=== PATIENT | female | born 1950 | race Caucasian/White ===

== ENCOUNTER 2019-12-19 10:20 | Outpatient (CLI) | payer OTHER, SELFPAY ==
[2019-12-19 10:34] LABS: Basophils Absolute Auto 0.1 K/mm3 (0.0-0.1); Basophils Percent Auto 0.7 % (0.2-1.2); Eosinophils Absolute Auto 0.2 K/mm3 (0-0.3); Hematocrit 42.2 % (37.0-47.0); Hemoglobin 13.5 g/dL (12.0-15.0); Immature Granulocyte Absolute 0.04 K/mm3 (0.00-0.031); Immature Granulocyte Percent A 0.4 % (0-0.5); Lymphocytes Absolute Auto 2.69 K/mm3 (0.9-3.2); Lymphocytes Percent Auto 29.9 % (18.3-44.2); Mean Corpuscular Hemoglobin 28.2 pg (26-34); Mean Corpuscular Volume 88.3 fl (80-100); Mean Platelet Volume 10.2 fl (7.4-10.4); Monocytes Absolute Auto 0.7 K/mm3 (0.1-0.6); Monocytes Percent Auto 7.9 % (2.6-8.5); Neutrophils Absolute Auto 5.3 K/mm3 (1.3-6.7); Neutrophils Percent Auto 59.1 % (45.5-73.1); Platelet Count Result 300 k/mm3 (150-375); Red Blood Count 4.78 M/mm3 (4.2-5.4); Red Cell Distribution Width 13.8 % (11.5-14.5)
[2019-12-19 10:37] LABS: Blood Urea Nitrogen 11 mg/dL (8-26); Carbon Dioxide 26 mmol/L (22-30); Chloride 105 mmol/L (98-109); Estimated Glomerular Filt Rate 55; Glucose 201 mg/dL (70-105); Potassium 3.7 mmol/L (3.5-4.9); Sodium 142 mmol/L (138-146)
[2019-12-23 04:46] LABS: CA 27.29 24 U/mL (<38)
== END 2019-12-19 10:21 | disposition home or self-care (01) ==
LOC: ANHLAB 10:22
PROVIDERS: PCP Family Medicine Adolescent Medicine; Visit Provider Internal Medicine Hematology & Oncology
DX: C50.411 Malignant neoplasm of upper-outer quadrant of right female breast (principal); Z17.0 Estrogen receptor positive status [ER+]
CPT/HCPCS: 36415; 80048; 85025; 86300

== ENCOUNTER 2020-03-01 10:51 | Outpatient (CLI) | payer OTHER, SELFPAY ==
--- NOTE | ~2020-03-01 | MM_ITS ---
EXAMINATION: MM diagnostic marilee RT w natali HISTORY: History of right breast cancer TECHNIQUE: Craniocaudal, mediolateral, and mediolateral oblique 3-D tomosynthesis images of the right breast were performed and synthetic 2-D images were generated. CAD analysis was submitted and interp reted. COMPARISON: 09/08/2019,06/20/2018,07/04/2018 BREAST PARENCHYMAL COMPOSITION: There are scattered areas of fibroglandular density. FINDINGS: Lumpectomy changes are again seen in the posterior third of the upper outer quadrant of the right breast which have slightly decreased in density since the most recent comparison. Right breast skin thickening is consistent with radiation treatment. There is no suspicious mass, calcification, or architectural distortion in the breast to suggest malignancy. IMPRESSION: 1. Expected treatment changes in the right breast without mammographic evidence of malignancy. 2. Routine imaging follow-up and screening are recommended. BI-RADS Category 2: Benign finding(s). Reviewed, dictated and finalized at location A.
== END 2020-03-01 10:52 | disposition home or self-care (01) ==
PROVIDERS: PCP Family Medicine Adolescent Medicine; Visit Provider Internal Medicine Hematology & Oncology
DX: C50.411 Malignant neoplasm of upper-outer quadrant of right female breast (principal); Z17.0 Estrogen receptor positive status [ER+]
CPT/HCPCS: 77061; 77065; G0279

== ENCOUNTER 2020-03-01 11:42 | Outpatient (CLI) | payer OTHER, SELFPAY ==
[2020-03-01 12:10] LABS: Basophils Absolute Auto 0.1 K/mm3 (0.0-0.1); Basophils Percent Auto 0.5 % (0.2-1.2); Eosinophils Absolute Auto 0.2 K/mm3 (0-0.3); Hematocrit 38.4 % (37.0-47.0); Hemoglobin 12.2 g/dL (12.0-15.0); Immature Granulocyte Absolute 0.06 K/mm3 (0.00-0.031); Immature Granulocyte Percent A 0.6 % (0-0.5); Lymphocytes Absolute Auto 3.33 K/mm3 (0.9-3.2); Lymphocytes Percent Auto 34.1 % (18.3-44.2); Mean Corpuscular HGB Conc 31.8 g/dl (32-36); Mean Corpuscular Volume 88.1 fl (80-100); Mean Platelet Volume 10.2 fl (7.4-10.4); Monocytes Absolute Auto 0.9 K/mm3 (0.1-0.6); Monocytes Percent Auto 9.2 % (2.6-8.5); Neutrophils Absolute Auto 5.2 K/mm3 (1.3-6.7); Neutrophils Percent Auto 53.6 % (45.5-73.1); Platelet Count Result 260 k/mm3 (150-375); Red Blood Count 4.36 M/mm3 (4.2-5.4); Red Cell Distribution Width 14.4 % (11.5-14.5); White Blood Count 9.8 K/mm3 (4.5-10.0)
[2020-03-01 13:36] LABS: Alanine Aminotransferase 14 U/L (4-35); Albumin Level 3.7 g/dL (3.5-5.1); Alkaline Phosphatase 81 U/L (38-126); Aspartate Amino Transferase 20 U/L (14-36); Bilirubin,Total 0.9 mg/dL (0.2-1.3); Blood Urea Nitrogen 13 mg/dL (7-17); Calcium 9.1 mg/dL (8.4-10.2); Carbon Dioxide 27 mmol/L (22-30); Chloride 105 mmol/L (98-107); Estimated Glomerular Filt Rate > 60; Glucose 91 mg/dL (65-105); Potassium 4.1 mmol/L (3.4-5.0); Sodium 140 mmol/L (137-145)
[2020-03-01 13:41] LABS: Cholesterol 151 mg/dL (0-200); HDL Direct 39 mg/dL; Triglycerides 174 mg/dL (<150)
[2020-03-01 13:52] LABS: LDL Cholesterol Direct 85 mg/dL
[2020-03-01 16:32] LABS: Hemoglobin A1C 7.1 % (<5.7)
[2020-03-05 21:01] LABS: CA 27.29 20 U/mL (<38)
== END 2020-03-01 11:43 | disposition home or self-care (01) ==
PROVIDERS: Internal Medicine Cardiovascular Disease; PCP Family Medicine Adolescent Medicine; Visit Provider Internal Medicine Hematology & Oncology
DX: E11.65 Type 2 diabetes mellitus with hyperglycemia (principal); E78.5 Hyperlipidemia, unspecified
CPT/HCPCS: 36415; 77061; 77065; 80053; 80061; 83036; 85025; 86300; G0279

== ENCOUNTER 2020-03-22 17:56 | Outpatient (CLI) | payer OTHER, SELFPAY ==
--- NOTE | ~2020-03-22 | XR_ITS ---
EXAMINATION: XR abdomen obstructive series EXAM DATE: 03/22/2020 18:23 INDICATION: Constipation for 2 weeks, bloating. TECHNIQUE: Frontal upright projection of the upper abdomen, frontal projection of the lower abdomen f or interpretation. There is no prior study for comparison. FINDINGS: There is large amount of colonic stool and gas. No small bowel dilation, nonobstructive b owel gas pattern. There are no suspicious calcifications identified. There is no organomegaly dago pected. There are mild bony degenerative changes. There are cholecystectomy clips. IMPRESSION: Stool-filled colon. Consider constipation. Reviewed, dictated and finalized at location A.
--- NOTE | ~2020-03-22 | XR_ITS ---
EXAMINATION: XR chest 2V EXAM DATE: 03/22/2020 18:24 INDICATION: High blood pressure. Breast cancer. Quadruple bypass. TECHNIQUE: Frontal and lateral projections of the chest obtained and reviewed. Comparison is made to prior examination from 08/06/2019. FINDINGS: Sternotomy wires are present without findings to suggest sternal dehiscence. The lungs are clear. There are no pleural effusions. Heart is upper limits of normal in size. There is no pneum othorax suspected. Patient has diffuse idiopathic skeletal hyperostosis (DISH). IMPRESSION: No acute cardiopulmonary findings. Reviewed, dictated and finalized at location A.
== END 2020-03-22 17:57 | disposition home or self-care (01) ==
LOC: ANHIMG 18:01
PROVIDERS: PCP Family Medicine Adolescent Medicine; Visit Provider Internal Medicine Hematology & Oncology
DX: K59.00 Constipation, unspecified (principal)
CPT/HCPCS: 71046; 74019

== ENCOUNTER → 2020-04-03 15:40 | Outpatient (CLI) | payer OTHER, SELFPAY ==
--- NOTE | ~2020-04-03 | XR_ITS ---
EXAMINATION: XR lumbar spine 2-3V DATE: 04/03/2020 16:42 INDICATION: Back pain TECHNIQUE: Anteroposterior and lateral views of the lumbar spine, and cone-down lateral view of the l umbosacral junction were obtained. COMPARISON: CT dated 03/08/2016 FINDINGS: Alignment is normal. Unchanged chronic T11 compression fracture with mild anterior wedging. Lumbar ve rtebral body heights are normal. Moderate disc height loss with vacuum phenomena at L5-S1. Moderate l ower lumbar facet osteoarthritis. Cholecystectomy clips in the right upper quadrant and likely droppe d clip in the right mid abdomen. Approximately 2 cm rim calcified lesion in the right abdomen. Large amount of stool scattered throughout the colon which could be seen with constipation. Atherosclerotic calcification along the abdominal aorta. IMPRESSION: 1. Chronic mild T11 compression fracture. 2. Moderate lower lumbar spondylosis. 3. 2 cm rim calcified lesion in the right abdomen. Differential would include dropped gallstone post prior cholecystectomy, heterotopic ossification, peripherally calcified diverticulum, peripherally ca lcified renal cyst or renal artery aneurysm. Reviewed, dictated and finalized at location A. IMPRESSION: 1. Chronic mild T11 compression fracture. 2. Moderate lower lumbar spondylosis. 3. 2 cm rim calcified lesion in the right abdomen. Differential would include d ropped gallstone post prior cholecystectomy, heterotopic ossification, peripher ally calcified diverticulum, peripherally calcified renal cyst or renal artery aneurysm.
--- NOTE | ~2020-04-03 | XR_ITS ---
EXAMINATION: XR_[id number]_CR DATE: 04/03/2020 16:42 INDICATION: Left rib and back pain TECHNIQUE: PA view of the chest and 3 views of the left ribs were obtained. COMPARISON: Chest radiograph dated 03/22/2020 FINDINGS: No rib fractures identified. Mild calcified nodules in the right lower lobe consistent with old granu lomatous disease. No other airspace opacities, pulmonary edema, pleural effusion or pneumothorax. Car diomediastinal silhouette is normal. Median sternotomy wires and mediastinal surgical clips are seen, likely from prior coronary artery bypass grafting. Postoperative changes at the right breast and bio psy marker at the left breast. IMPRESSION: 1. No rib fracture or acute cardiopulmonary disease. Reviewed, dictated and finalized at location A.
== END ==
PROVIDERS: PCP Physician Assistant; Visit Provider Physician Assistant
DX: M54.5 Low back pain (principal); M48.54XA Collapsed vertebra, not elsewhere classified, thoracic region, initial encounter for fracture; M47.816 Spondylosis without myelopathy or radiculopathy, lumbar region
CPT/HCPCS: 71101; 72100

== ENCOUNTER → 2020-07-01 07:33 | Outpatient (CLI) | payer OTHER, SELFPAY ==
--- NOTE | ~2020-07-01 | MM_ITS ---
EXAMINATION: MM diagnostic marilee BI w natali HISTORY: Right breast cancer TECHNIQUE: Craniocaudal, mediolateral, and mediolateral oblique 3-D tomosynthesis images of the breas ts were performed and synthetic 2-D images were generated. CAD analysis was submitted and interpreted . COMPARISON: 03/01/2020, 09/08/2019, 06/20/2018 BREAST PARENCHYMAL COMPOSITION: There are scattered areas of fibroglandular density. FINDINGS: There are lumpectomy and radiation changes in the right breast. There is no evidence of dago picious mass, calcification, or architectural distortion in either breast to suggest malignancy. The re has been no suspicious interval change. IMPRESSION: 1. No mammographic evidence of malignancy. 2. Recommend routine screening mammography in one year. BI-RADS Category 2: Benign finding(s). Reviewed, dictated and finalized at location A. E REGISTRY RN
== END ==
PROVIDERS: PCP Family Medicine Adolescent Medicine; Visit Provider Internal Medicine Hematology & Oncology
DX: C50.411 Malignant neoplasm of upper-outer quadrant of right female breast (principal); Z17.0 Estrogen receptor positive status [ER+]
CPT/HCPCS: 77062; 77066; G0279

== ENCOUNTER 2020-10-31 15:46 | Outpatient (CLI) | payer OTHER, SELFPAY ==
--- NOTE | ~2020-10-31 | CT_ITS ---
EXAMINATION: CT abdomen pelvis w con DATE: 10/31/2020 16:21 INDICATION: Constipation. Weight loss. Abdominal pain. TECHNIQUE: Computed tomography (CT) of the abdomen and pelvis was performed with 100 mL Omnipaque 350 intravenous contrast. Automated exposure control and iterative reconstruction technique were employe d. The dose-length product was 1040.99 mGy-cm. COMPARISON: Chest CT 04/15/2016 FINDINGS: The visualized portions of the lung bases demonstrate mild atelectasis. A calcified right l bharathi nodule is consistent with old granulomatous disease. No pleural effusion. There is left atrial en largement of the heart. There are coronary artery calcifications. No pericardial effusion. There is s kin thickening in right breast, consistent with changes of radiation therapy. Calcifications in the l iver and spleen are consistent with old granulomatous disease. There are changes of cholecystectomy. The pancreas and adrenal glands are normal. There is cortical thinning of the kidneys. There is a 5 m m cyst in left kidney. Stool distends the rectum, which demonstrates mild wall thickening, consistent with stercoral colitis. There is a large volume of stool in the colon. The appendix is normal. There are no pathologically enlarged lymph nodes. There is no free intraperitoneal fluid. There is severe lower lumbar spondylosis. There is moderate thoracic spondylosis. There is mild chronic anterior wedg ing of multiple lower thoracic vertebral bodies. IMPRESSION: 1. Stercoral colitis. Reviewed, dictated and finalized at location A. IMPRESSION: 1. Stercoral colitis.
[2020-10-31 16:15] LABS: Estimated Glomerular Filt Rate 49
== END 2020-10-31 15:47 | disposition home or self-care (01) ==
PROVIDERS: PCP Family Medicine Adolescent Medicine; Visit Provider Internal Medicine Gastroenterology
DX: K59.00 Constipation, unspecified (principal); R63.4 Abnormal weight loss; R10.9 Unspecified abdominal pain; K52.89 Other specified noninfective gastroenteritis and colitis
CPT/HCPCS: 74177; Q9967

== ENCOUNTER → 2021-07-03 07:01 | Outpatient (CLI) | payer OTHER, SELFPAY ==
--- NOTE | ~2021-07-03 | MM_ITS ---
EXAMINATION: MM screening marilee BI w natali HISTORY: Screening mammogram TECHNIQUE: Craniocaudal and mediolateral oblique 3-D tomosynthesis images were obtained and synthetic 2-D images were generated. CAD analysis was submitted and interpreted. COMPARISON: 07/01/2020 diagnostic bilateral mammogram 03/01/2020 right diagnostic mammogram 09/04/2019 diagnostic bilateral mammogram BREAST PARENCHYMAL COMPOSITION: The breasts are heterogeneously dense, which may obscure small masses . FINDINGS: Stable postoperative change of the right breast and persistent skin thickening. There are b iopsy markers on the right. There is asymmetric increased density of the right breast compared to the left, stable since 07/01/2020 09/04/2019 PA and. Biopsy marker on the left. History of prior benign left breast biopsy. There is no evidence of interval suspicious mass, calcification, or architectural distortion to sugge st malignancy in either breast. There has been no suspicious interval change. IMPRESSION: 1. Status post right partial mastectomy and radiation breast cancer. No mammographic evidence of moreno gnancy no significant change since 07/01/2020 09/04/2019. 2. Recommend routine screening mammography in one year. BI-RADS Category 2: Benign finding(s). Reviewed, dictated and finalized at location A. HIATRIC AIDE IMPRESSION: 1. Status post right partial mastectomy and radiation breast cancer. No mammogr aphic evidence of malignancy no significant change since 07/01/2020 09/04/2019. 2. Recommend routine screening mammography in one year. BI-RADS Category 2: Benign finding(s).
== END ==
PROVIDERS: PCP Family Medicine Adolescent Medicine; Visit Provider Internal Medicine Hematology & Oncology
DX: Z12.31 Encounter for screening mammogram for malignant neoplasm of breast (principal)
CPT/HCPCS: 77063; 77067

== ENCOUNTER 2021-07-03 08:28 | Outpatient (CLI) | payer OTHER, SELFPAY ==
[2021-07-03 08:46] LABS: Basophils Percent Auto 0.5 % (0.2-1.2); Eosinophils Absolute Auto 0.3 K/mm3 (0-0.3); Eosinophils Percent Auto 2.9 % (0-4.4); Hematocrit 38.3 % (37.0-47.0); Hemoglobin 12.1 g/dL (12.0-15.0); Immature Granulocyte Absolute 0.02 K/mm3 (0.00-0.031); Immature Granulocyte Percent A 0.2 % (0-0.5); Lymphocytes Absolute Auto 2.25 K/mm3 (0.9-3.2); Lymphocytes Percent Auto 26.3 % (18.3-44.2); Mean Corpuscular HGB Conc 31.6 g/dl (32-36); Mean Corpuscular Hemoglobin 27.2 pg (26-34); Mean Corpuscular Volume 86.1 fl (80-100); Mean Platelet Volume 9.7 fl (7.4-10.4); Monocytes Absolute Auto 0.7 K/mm3 (0.1-0.6); Neutrophils Absolute Auto 5.3 K/mm3 (1.3-6.7); Neutrophils Percent Auto 62.1 % (45.5-73.1); Platelet Count Result 251 k/mm3 (150-375); Red Blood Count 4.45 M/mm3 (4.2-5.4); Red Cell Distribution Width 13.4 % (11.5-14.5); White Blood Count 8.6 K/mm3 (4.5-10.0)
[2021-07-03 09:45] LABS: Alanine Aminotransferase 17 U/L (4-35); Albumin Level 3.8 g/dL (3.5-5.1); Alkaline Phosphatase 67 U/L (38-126); Anion Gap 5 mmol/L (8-16); Aspartate Amino Transferase 36 U/L (14-36); Blood Urea Nitrogen 12 mg/dL (7-17); Calcium 9.5 mg/dL (8.4-10.2); Carbon Dioxide 30 mmol/L (22-30); Chloride 101 mmol/L (98-107); Estimated Glomerular Filt Rate > 60; Glucose 178 mg/dL (65-110); Potassium 4.4 mmol/L (3.4-5.0); Sodium 136 mmol/L (137-145)
[2021-07-09 07:05] LABS: CA 15-3 13 U/mL (<32)
== END 2021-07-03 08:29 | disposition home or self-care (01) ==
LOC: ANHLAB 08:30
PROVIDERS: PCP Family Medicine Adolescent Medicine; Visit Provider Internal Medicine Hematology & Oncology
DX: C50.411 Malignant neoplasm of upper-outer quadrant of right female breast (principal); Z17.0 Estrogen receptor positive status [ER+]
CPT/HCPCS: 36415; 80053; 85025; 86300

== ENCOUNTER → 2022-07-07 07:33 | Outpatient (CLI) | payer OTHER, SELFPAY ==
--- NOTE | ~2022-07-07 | MM_ITS ---
EXAMINATION: MM screening marilee BI w natali HISTORY: Screening mammogram TECHNIQUE: Craniocaudal and mediolateral oblique 3-D tomosynthesis images were obtained and synthetic 2-D images were generated. CAD analysis was submitted and interpreted. COMPARISON: 07/03/2021, 07/01/2020 screening and diagnostic bilateral mammogram examinations 03/01/2020 diagnostic right mammogram 09/08/2019 bilateral diagnostic mammogram Serial mammogram and ultrasound examinations dating back to 08/18/2016 bilateral screening mammogram ex amination BREAST PARENCHYMAL COMPOSITION: The breasts are heterogeneously dense, which may obscure small masses . FINDINGS: Right breast: Status post right partial mastectomy for breast cancer. There is chronic stable asymmetric accentuated fibroglandular stroma and skin thickening of the right breast compared to the left, previously attributed to radiation treatment, not significantly changed since 07/01/2020. Several right biopsy markers are noted. No interval new mass or new architectural distortion or any malignant calcification is noted. Left breast: There is no evidence of suspicious mass, calcification, or architectural distortion to s uggest malignancy in either breast. There has been no suspicious interval change. IMPRESSION: 1. Status post right partial mastectomy; chronic asymmetric increased fibroglandular stroma and skin thickening on the right, relatively stable since 07/01/2020 2. Recommend routine screening mammography in one year. BI-RADS Category 2: Benign finding(s). Reviewed, dictated and finalized at location A. ICE RN IMPRESSION: 1. Status post right partial mastectomy; chronic asymmetric increased fibroglan dular stroma and skin thickening on the right, relatively stable since 07/01/20 20 2. Recommend routine screening mammography in one year. BI-RADS Category 2: Benign finding(s).
--- NOTE | ~2022-07-07 | DEXA_ITS ---
Bone Density Report Name: LISA AHN Age: 71 Sex: Female Ethnicity: White Date of : 1950 Indication: postmenopausal; screening for osteoporosis; height loss; prior fracture; cancer; Referring Provider: Tj Fischer Study: Bone densitometry was performed. Exam Date: July 07, 2022 Accession number: [id number] Bone Density: Region BMD T-score Z-score Classification AP Spine (L1-L4) 1.212 1.5 3.8 Normal Femoral Neck (Left) 0.841 -0.1 1.9 Normal Total Hip (Left) 0.964 0.2 1.9 Normal Femoral Neck (Right) 0.815 -0.3 1.7 Normal Total Hip (Right) 0.931 -0.1 1.6 Normal Total Hip Mean 0.948 0.1 1.8 Normal World Health Organization criteria for BMD impression classify patients as: Normal (T-score at or above -1.0), Osteopenia (T-score between -1.0 and -2.5), or Osteoporosis (T-score at or below -2.5). 10-year Fracture Risk: FRAX not reported because: All T-scores for Spine Total, Hip Total, Femoral Neck at or above -1.0 Previous Exams: Region Exam Age BMD T-score BMD Change BMD Change Date g/cm2 vs Baseline vs Previous AP Spine(L1-L4) 07/07/2022 71 1.212 1.5 0.007 0.007 12/21/2016 66 1.205 1.4 Total Hip(Left) 07/07/2022 71 0.964 0.2 -0.113 -0.113 12/21/2016 66 1.077 1.1 Total Hip(Right) 07/07/2022 71 0.931 -0.1 -0.148 -0.148 12/21/2016 66 1.079 1.1 *Denotes significance at 95% confidence level, LSC for AP Spine = 0.022 g/cm2, LSC for Total Hip = 0.027 g/cm2 Clinical Information Provided by Patient: Has had a low trauma fracture Has the following medical conditions: Cancer, breast cancer 2018 Patient maximum height was 65 Menopause Age: 48 No regular weight bearing exercise Does not regularly consume dairy products Drinks caffeinated beverages Onset of menses at age 12 Number of children 2 Impression: The patient has normal bone mass. The patient has risk factors, including: previous fracture. No significant bone loss was observed. Discussion: BONE DENSITY IS ABOVE THE MINIMUM DESIRABLE LEVEL AT ALL SKELETAL SITES TESTED. This patient?s bone mineral density is above the minimum desirable level (T-score -1.0 or better) at all sites measured. The patient should follow a healthful lifestyle (good nutrition with adequate calcium and vitamin D, and appropriate weight-bearing exercise). Follow-Up: Consider repeating this study in 5 years or sooner if the
== END ==
PROVIDERS: PCP Family Medicine Adolescent Medicine; Visit Provider Internal Medicine Hematology & Oncology
DX: Z12.31 Encounter for screening mammogram for malignant neoplasm of breast (principal); Z78.0 Asymptomatic menopausal state
CPT/HCPCS: 77063; 77067; 77080

== ENCOUNTER 2022-12-31 08:07 | Outpatient (CLI) | payer OTHER, SELFPAY ==
--- NOTE | ~2022-12-31 | US_ITS ---
EXAMINATION:US venous doppler LE LT INDICATION:Left knee pain TECHNIQUE: Multiple grayscale, color flow and Doppler images of the left lower extremity deep venous systems were obtained and reviewed. COMPARISON:No prior studies for comparison. FINDINGS: The common femoral, superficial femoral and popliteal veins demonstrate normal respiratory variation, augmentation and compressibility. Color flow is also seen within the posterior tibial, pe roneal, greater saphenous and profunda veins. IMPRESSION: 1: No lower extremity deep venous thrombosis. Reviewed, dictated and finalized at location D.
== END 2022-12-31 08:08 | disposition home or self-care (01) ==
LOC: ANHIMG 08:11
PROVIDERS: PCP Family Medicine Adolescent Medicine; Visit Provider Orthopaedic Surgery
DX: M25.462 Effusion, left knee (principal); M25.562 Pain in left knee
CPT/HCPCS: 93971

== ENCOUNTER 2022-12-31 09:56 | Outpatient (CLI) | payer OTHER, SELFPAY ==
[2022-12-31 10:39] LABS: Basophils Absolute Auto 0.1 K/mm3 (0.0-0.1); Basophils Percent Auto 0.6 % (0.2-1.2); Eosinophils Absolute Auto 0.1 K/mm3 (0-0.3); Eosinophils Percent Auto 1.4 % (0-4.4); Hematocrit 39.2 % (37.0-47.0); Hemoglobin 12.3 g/dL (12.0-15.0); Immature Granulocyte Absolute 0.04 K/mm3 (0.00-0.031); Immature Granulocyte Percent A 0.4 % (0-0.5); Lymphocytes Percent Auto 21.9 % (18.3-44.2); Mean Corpuscular HGB Conc 31.4 g/dl (32-36); Mean Corpuscular Hemoglobin 24.3 pg (26-34); Mean Corpuscular Volume 77.3 fl (80-100); Mean Platelet Volume 10.4 fl (7.4-10.4); Monocytes Absolute Auto 0.8 K/mm3 (0.1-0.6); Monocytes Percent Auto 7.8 % (2.6-8.5); Neutrophils Absolute Auto 6.8 K/mm3 (1.3-6.7); Neutrophils Percent Auto 67.9 % (45.5-73.1); Platelet Count Result 266 k/mm3 (150-375); Red Blood Count 5.07 M/mm3 (4.2-5.4); Red Cell Distribution Width 16.3 % (11.5-14.5)
[2022-12-31 12:35] LABS: Alanine Aminotransferase 19 U/L (6-35); Alkaline Phosphatase 92 U/L (38-126); Anion Gap 8 mmol/L (8-16); Aspartate Amino Transferase 29 U/L (14-36); Bilirubin,Total 1.1 mg/dL (0.2-1.3); Blood Urea Nitrogen 16 mg/dL (7-17); Calcium 9.1 mg/dL (8.4-10.2); Carbon Dioxide 28 mmol/L (22-30); Chloride 105 mmol/L (98-107); Estimated Glomerular Filt Rate > 60; Glucose 201 mg/dL (65-110); Potassium 4.3 mmol/L (3.4-5.0); Sodium 141 mmol/L (137-145)
[2023-01-05 14:44] LABS: CA 15-3 17 U/mL (<32)
== END 2022-12-31 09:57 | disposition home or self-care (01) ==
LOC: ANHLAB 09:57
PROVIDERS: PCP Family Medicine Adolescent Medicine; Visit Provider Internal Medicine Hematology & Oncology
DX: M85.89 Other specified disorders of bone density and structure, multiple sites (principal); C50.411 Malignant neoplasm of upper-outer quadrant of right female breast
CPT/HCPCS: 36415; 80053; 85025; 86300; 93971

== ENCOUNTER 2023-02-03 08:00 | Outpatient (RCR) | payer OTHER, SELFPAY ==
--- NOTE | 2023-01-07 08:40 | PTOPEVAL1 ---
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 Since then patient has had trouble with her knee giving out on her buckling when turning. Patient has trouble with stairs, walking and any activity causing her to twist her leg. Patient takes topical creams to help with pain. Reported Pain Level Pain Score 0: Self Report Assessment PT Clinical Summary Trudy is a 72 year old female coming into the clinic with pain around her L knee. She has pain with posterior drawer and 30 degrees varus stress test. Also has tight hamstrings and calfs. In addition weakness in the hip extensors and knee flexors, and calfs. Physical therapy will work on stretching and strengthening the LLE specifically the L knee stabilizers along with manual and modalities as needed for pain control. Plan of Care Interventions Electrical Stimulation,Gait Training,Hot Pack/Cold Pack,Manual Therapy,Neuro Re-education,Patient/ Caregiver Education,Therapeutic Activities, Therapeutic Exercise,Ultrasound Other Interventions taping, cupping, IASTM. PT Services Indicated Yes Treatment Frequency and 1-2x/wk for 4 weeks Duration These treatments will address the objective and functional deficits as defined above. The patient will be advanced safely and appropriately in order for the patient to progress towards his/her prior level of function. Additional exercises will be introduced and as well as a comprehensive home exercise program upon discharge, if needed, ?to ensure carryover of functional gains achieved in the clinic. This treatment plan has been reviewed and agreement upon by the patient.
--- NOTE | 2023-01-07 08:40 | OPREHPOC ---
Outpatient Therapy Plan of Care This is a Multidisciplinary Plan of Care that may contain components documented by all disciplines (PT, OT, and ST.) PT Problem 1 PT Problem #1 Knowledge Deficit PT Goal 1 Goal Independent with HEP Target Visit 6 PT Problem 2 PT Problem #2 Pain PT Goal 1 Goal no more than 2/10 pain in a week Target Visit 6 PT Problem 3 PT Problem #3 Impaired Strength PT Goal 1 Goal L hip extensors and knee flexors 4+/5 able to stand on L LE unsupported for 15 seconds Target Visit 6 PT Problem 4 PT Problem #4 Impaired Flexibility PT Goal 1 Goal DARIAN hamstring -25 degrees Target Visit 6
--- NOTE | 2023-02-03 08:49 | PTOPDC ---
Assessment and note entered by Adalid Gabriel, PT Evaluation Information Assessment Status Discharge Diagnosis Pain in L posterior knee Onset August 2022 Subjective Information Patient reports pain is a lot better no worse than a 5/10. Patient having no real issues with the knee more in the hips and back. Physical therapist offers to ask for new orders to look at the back and hip, but patient declines at this time. Patient okay with discharge for the knee doing HEP at home Reported Pain Level Pain Score Mild Pain: John Espinoza Additional Pain Score Comments in the posterior knee, more in the back and hips Assessment PT Clinical Summary Trudy is a 72 year old female coming into the clinic with a diagnosis of posterior L knee pain. Patient was evaluated on 01/05/23 and attended 4 sessions with physical therapy she met her flexibility and strength goal, did not meet her balance goal. Offered to get new orders for her hip and back, which she states is bothering her more than the L posterior knee, but patient declines. Discharged from skilled physical therapy with HEP. Plan of Care PT Services Indicated No
== END 2023-02-04 09:02 | disposition home or self-care (01) ==
LOC: ANHPT 08:00
PROVIDERS: PCP Family Medicine Adolescent Medicine; Visit Provider Orthopaedic Surgery
DX: M25.562 Pain in left knee (principal)
CPT/HCPCS: 97110; 97161; 97530

== ENCOUNTER → 2023-07-09 07:27 | Outpatient (CLI) | payer OTHER, SELFPAY ==
--- NOTE | ~2023-07-09 | MM_ITS ---
EXAMINATION: MM screening marilee BI w natali HISTORY: Screening mammogram TECHNIQUE: Craniocaudal and mediolateral oblique 3-D tomosynthesis images were obtained and synthetic 2-D images were generated. CAD analysis was submitted and interpreted. COMPARISON: 07/07/2022, 07/03/2021 bilateral screening mammogram 07/01/2020 bilateral diagnostic mammogram 03/01/2020 right diagnostic mammogram BREAST PARENCHYMAL COMPOSITION: The breasts are heterogeneously dense, which may obscure small masses . FINDINGS: Again noted is partial right mastectomy change. Bilateral breast biopsy markers are again n oted. There is chronic accentuated fibroglandular stroma and skin thickening on the right, previously attri buted to post radiation change. New suspicious mass, new architectural distortion or new skin thickening or retraction of either olivia st is detected. There is no evidence of suspicious mass, calcification, or architectural distortion t o suggest malignancy in either breast. There has been no suspicious interval change. IMPRESSION: 1. Status post right partial mastectomy for breast cancer. No mammographic evidence of malignancy. 2. Recommend routine screening mammography in one year. BI-RADS Category 2: Benign finding(s). Reviewed, dictated and finalized at location A. CH COMBER IMPRESSION: 1. Status post right partial mastectomy for breast cancer. No mammographic evid ence of malignancy. 2. Recommend routine screening mammography in one year. BI-RADS Category 2: Benign finding(s).
== END ==
PROVIDERS: PCP Internal Medicine Hematology & Oncology; Visit Provider Internal Medicine Hematology & Oncology
DX: Z12.31 Encounter for screening mammogram for malignant neoplasm of breast (principal)
CPT/HCPCS: 77063; 77067

== ENCOUNTER 2023-07-12 08:17 | Outpatient (CLI) | payer OTHER, SELFPAY ==
[2023-07-12 08:52] LABS: Basophils Absolute Auto 0.1 K/mm3 (0.0-0.1); Basophils Percent Auto 0.3 % (0.2-1.2); Eosinophils Absolute Auto 0.1 K/mm3 (0-0.3); Eosinophils Percent Auto 0.7 % (0-4.4); Hemoglobin 14.7 g/dL (12.0-15.0); Immature Granulocyte Absolute 0.05 K/mm3 (0.00-0.031); Immature Granulocyte Percent A 0.3 % (0-0.5); Mean Corpuscular HGB Conc 33.4 g/dl (32-36); Mean Corpuscular Hemoglobin 27.8 pg (26-34); Mean Corpuscular Volume 83.3 fl (80-100); Mean Platelet Volume 9.8 fl (7.4-10.4); Monocytes Absolute Auto 1.3 K/mm3 (0.1-0.6); Monocytes Percent Auto 8.9 % (2.6-8.5); Neutrophils Absolute Auto 10.1 K/mm3 (1.3-6.7); Neutrophils Percent Auto 68.8 % (45.5-73.1); Platelet Count Result 303 k/mm3 (150-375); Red Blood Count 5.28 M/mm3 (4.2-5.4); Red Cell Distribution Width 13.9 % (11.5-14.5); White Blood Count 14.7 K/mm3 (4.5-10.0)
[2023-07-12 17:03] LABS: Alanine Aminotransferase 21 U/L (6-35); Albumin Level 4.4 g/dL (3.5-5.1); Alkaline Phosphatase 56 U/L (38-126); Anion Gap 12 mmol/L (8-16); Aspartate Amino Transferase 28 U/L (14-36); Bilirubin,Total 1.4 mg/dL (0.2-1.3); Blood Urea Nitrogen 14 mg/dL (7-17); Calcium 9.5 mg/dL (8.4-10.2); Carbon Dioxide 24 mmol/L (22-30); Chloride 105 mmol/L (98-107); Estimated Glomerular Filt Rate > 60; Glucose 152 mg/dL (65-110); Potassium 3.9 mmol/L (3.4-5.0); Sodium 141 mmol/L (137-145)
[2023-07-15 05:38] LABS: CA 15-3 14 U/mL (<32)
== END 2023-07-12 08:18 | disposition home or self-care (01) ==
LOC: ANHLAB 08:19
PROVIDERS: PCP Internal Medicine Hematology & Oncology; Visit Provider Internal Medicine Hematology & Oncology
DX: C50.411 Malignant neoplasm of upper-outer quadrant of right female breast (principal); Z17.0 Estrogen receptor positive status [ER+]
CPT/HCPCS: 36415; 80053; 85025; 86300

== ENCOUNTER 2023-07-16 08:07 | Outpatient (CLI) | payer OTHER, SELFPAY ==
[2023-07-16 15:33] LABS: Alanine Aminotransferase 19 U/L (6-35); Albumin Level 3.8 g/dL (3.5-5.1); Alkaline Phosphatase 57 U/L (38-126); Anion Gap 10 mmol/L (8-16); Aspartate Amino Transferase 23 U/L (14-36); Bilirubin,Total 1.1 mg/dL (0.2-1.3); Blood Urea Nitrogen 13 mg/dL (7-17); Calcium 9.4 mg/dL (8.4-10.2); Carbon Dioxide 24 mmol/L (22-30); Chloride 107 mmol/L (98-107); Cholesterol 106 mg/dL (0-200); Estimated Glomerular Filt Rate > 60; Glucose 160 mg/dL (65-110); HDL Direct 43 mg/dL; Potassium 4.1 mmol/L (3.4-5.0); Sodium 141 mmol/L (137-145); Triglycerides 104 mg/dL (<150)
[2023-07-16 15:37] LABS: Creatinine Urine 230.4 mg/dL
[2023-07-16 15:40] LABS: Microalbumin Urine Random 41.5 mg/L (0-16.7)
[2023-07-16 15:44] LABS: LDL Cholesterol Direct 47 mg/dL
[2023-07-16 15:57] LABS: Hemoglobin A1C 6.3 % (<5.7)
== END 2023-07-16 08:08 | disposition home or self-care (01) ==
LOC: ANHLAB 08:12
PROVIDERS: Nurse Practitioner Family; PCP Family Medicine Adolescent Medicine; Visit Provider Internal Medicine Hematology & Oncology
DX: E78.2 Mixed hyperlipidemia (principal); E11.9 Type 2 diabetes mellitus without complications
CPT/HCPCS: 36415; 80053; 80061; 82043; 82607; 83036

== ENCOUNTER 2023-10-14 10:56 | Outpatient (CLI) | payer OTHER, SELFPAY ==
[2023-10-14 11:14] LABS: Basophils Absolute Auto 0.1 K/mm3 (0.0-0.1); Basophils Percent Auto 0.5 % (0.2-1.2); Eosinophils Absolute Auto 0.1 K/mm3 (0-0.3); Eosinophils Percent Auto 1.2 % (0-4.4); Hemoglobin 12.6 g/dL (12.0-15.0); Immature Granulocyte Absolute 0.05 K/mm3 (0.00-0.031); Immature Granulocyte Percent A 0.5 % (0-0.5); Lymphocytes Absolute Auto 2.95 K/mm3 (0.9-3.2); Lymphocytes Percent Auto 30.5 % (18.3-44.2); Mean Corpuscular HGB Conc 32.3 g/dl (32-36); Mean Corpuscular Hemoglobin 28.1 pg (26-34); Mean Corpuscular Volume 86.9 fl (80-100); Monocytes Absolute Auto 0.7 K/mm3 (0.1-0.6); Monocytes Percent Auto 6.7 % (2.6-8.5); Neutrophils Absolute Auto 5.9 K/mm3 (1.3-6.7); Neutrophils Percent Auto 60.6 % (45.5-73.1); Platelet Count Result 270 k/mm3 (150-375); Red Blood Count 4.49 M/mm3 (4.2-5.4); Red Cell Distribution Width 13.6 % (11.5-14.5); White Blood Count 9.7 K/mm3 (4.5-10.0)
[2023-10-14 11:57] LABS: Alanine Aminotransferase 16 U/L (6-35); Alkaline Phosphatase 67 U/L (38-126); Anion Gap 6 mmol/L (8-16); Aspartate Amino Transferase 23 U/L (14-36); Blood Urea Nitrogen 16 mg/dL (7-17); Calcium 9.8 mg/dL (8.4-10.2); Carbon Dioxide 28 mmol/L (22-30); Chloride 105 mmol/L (98-107); Estimated Glomerular Filt Rate > 60; Glucose 210 mg/dL (65-110); Potassium 4.7 mmol/L (3.4-5.0); Sodium 139 mmol/L (137-145)
[2023-10-17 08:13] LABS: CA 15-3 14 U/mL (<32)
== END 2023-10-14 10:57 | disposition home or self-care (01) ==
PROVIDERS: PCP Family Medicine Adolescent Medicine; Visit Provider Internal Medicine Hematology & Oncology
DX: C50.411 Malignant neoplasm of upper-outer quadrant of right female breast (principal); Z17.0 Estrogen receptor positive status [ER+]
CPT/HCPCS: 36415; 80053; 85025; 86300

== ENCOUNTER 2024-07-19 08:27 | Outpatient (CLI) | payer OTHER, SELFPAY ==
[2024-07-19 08:55] LABS: Basophils Absolute Auto 0.1 K/mm3 (0.0-0.1); Basophils Percent Auto 0.6 % (0.2-1.2); Eosinophils Absolute Auto 0.2 K/mm3 (0-0.3); Hematocrit 38.8 % (37.0-47.0); Hemoglobin 12.6 g/dL (12.0-15.0); Immature Granulocyte Absolute 0.04 K/mm3 (0.00-0.031); Immature Granulocyte Percent A 0.4 % (0-0.5); Lymphocytes Absolute Auto 2.64 K/mm3 (0.9-3.2); Mean Corpuscular HGB Conc 32.5 g/dl (32-36); Mean Corpuscular Hemoglobin 26.5 pg (26-34); Mean Corpuscular Volume 81.5 fl (80-100); Mean Platelet Volume 10.3 fl (7.4-10.4); Monocytes Absolute Auto 0.9 K/mm3 (0.1-0.6); Monocytes Percent Auto 8.9 % (2.6-8.5); Neutrophils Absolute Auto 6.7 K/mm3 (1.3-6.7); Neutrophils Percent Auto 63.1 % (45.5-73.1); Platelet Count Result 280 k/mm3 (150-375); Red Blood Count 4.76 M/mm3 (4.2-5.4); Red Cell Distribution Width 13.2 % (11.5-14.5); White Blood Count 10.6 K/mm3 (4.5-10.0)
[2024-07-19 20:41] LABS: Alanine Aminotransferase 22 U/L (6-35); Albumin Level 3.8 g/dL (3.5-5.1); Alkaline Phosphatase 88 U/L (38-126); Anion Gap 5 mmol/L (4-12); Aspartate Amino Transferase 28 U/L (14-36); Bilirubin,Total 1.5 mg/dL (0.2-1.3); Blood Urea Nitrogen 14 mg/dL (7-17); Calcium 9.3 mg/dL (8.4-10.2); Carbon Dioxide 28 mmol/L (22-30); Chloride 106 mmol/L (98-107); Estimated Glomerular Filt Rate > 60; Glucose 267 mg/dL (65-110); Sodium 139 mmol/L (137-145)
[2024-07-21 07:38] LABS: CA 15-3 19 U/mL (<32)
== END 2024-07-19 08:28 | disposition home or self-care (01) ==
LOC: ANHLAB 08:29
PROVIDERS: PCP Family Medicine Adolescent Medicine; Visit Provider Internal Medicine Hematology & Oncology
DX: C50.411 Malignant neoplasm of upper-outer quadrant of right female breast (principal); Z17.0 Estrogen receptor positive status [ER+]
CPT/HCPCS: 36415; 80053; 85025; 86300

== ENCOUNTER 2024-09-06 09:04 | Outpatient (CLI) | payer OTHER, SELFPAY ==
--- NOTE | ~2024-09-06 | MM_ITS ---
EXAMINATION: MM screening [facility] BI w natali HISTORY: Screening TECHNIQUE: Craniocaudal and mediolateral oblique 3-D tomosynthesis images were obtained and synthetic 2-D images were generated. CAD analysis was submitted and interpreted. COMPARISON: Comparison to multiple prior studies sequentially, with oldest reviewed study dated 09/08. BREAST PARENCHYMAL COMPOSITION: Not dense: There are scattered areas of fibroglandular density. FINDINGS: There is distortion in the right breast consistent with previous lumpectomy. There is skin thickening and increased reticulation of the right breast, likely related to prior radiation therapy. There is no evidence of suspicious mass, calcification, or architectural distortion to suggest malig carolin in either breast. There has been no suspicious interval change. IMPRESSION: 1. No mammographic evidence of malignancy. 2. Recommend routine screening mammography in one year. BI-RADS Category 2: Benign finding(s). Reviewed, dictated and finalized at location A. AIGN WORKER
--- OUTSIDE RECORDS SUMMARY | 2024-09-07 22:15 | XMS_ITS | Clinical Summary ---
Author Organization [facility] Address [address] [place] [address] Care Team Providers Care Accounts Payable Professional Name Role Phone Srikanth Melgar MD Primary Care Provider [phone] Allergies Active Allergy Reactions Criticality Noted Date Comments Iodine Hives High 10/27/2018 Medications doxycycline hyclate (VIBRAMYCIN) 100 mg capsule Take 100 mg by mouth 2 times daily. 0 9 Active isosorbide mononitrate (IMDUR) 60 mg Extended Release 24 hour tablet TK 1 T PO D 3 9 Active meclizine (ANTIVERT) 25 mg tablet TAKE 1 TABLET BY MOUTH 4 TIMES A DAY 0 9 Active aspirin (ECOTRIN EC) 81 mg Tablet, Delayed Release (E.C.) Take 81 mg by mouth daily. Active metFORMIN (GLUCOPHAGE XR) 500 mg Extended Release 24 hour tablet metformin ER 500 mg tablet,extended release 24 hr Active naproxen (NAPROSYN) 500 mg tablet naproxen 500 mg tablet Active montelukast (SINGULAIR) 10 mg tablet montelukast 10 mg tablet Active fluticasone propionate (FLONASE) 50 mcg/spray [place], Suspension nasal inhaler fluticasone propionate 50 mcg/actuation nasal spray,suspension Active albuterol HFA 90 mcg inhaler ProAir HFA 90 mcg/actuation aerosol inhaler Active glimepiride (AMARYL) 4 mg tablet glimepiride 4 mg tablet Active Irbesartan (AVAPRO) 300 mg tablet irbesartan 300 mg tablet Active nitroglycerin (NITROSTAT) 0.4 mg Tablet, Sublingual nitroglycerin 0.4 mg sublingual tablet Active simvastatin (ZOCOR) 40 mg tablet simvastatin 40 mg tablet Active cloNIDine HCl (CATAPRES) 0.1 mg tablet Take 0.1 mg by mouth. 9 Active BREO ELLIPTA 100-25 mcg/dose Disk with Device 9 Active metoprolol succinate (TOPROL XL) 50 mg Extended Release 24 hour tablet TAKE 1 TABLET BY MOUTH EVERY DAY 0 9 Active spironolactone (ALDACTONE) 25 mg tablet 0 Active pioglitazone (ACTOS) 30 mg tablet 9 Active furosemide (LASIX) 20 mg tablet 9 Active clopidogreL (PLAVIX) 75 mg Tablet 9 Active cloNIDine ([id number]-OFG-7 ) 0.1 mg/24 hr patch 9 Active atorvastatin (LIPITOR) 80 mg tablet 0 Active armodafiniL (NUVIGIL) 150 mg tablet 0 Active baclofen (LIORESAL) 10 mg tablet TAKE 1 TABLET BY MOUTH 3 TIMES A DAY NEEDED FOR BACK PAIN 0 Active chlorhexidine gluconate 0.12 % Mouthwash SWISH WITH A 1/2 OZ FOR 30 SECONDS TWICE DAILY 0 Active pilocarpine (SALAGEN) 5 mg Tablet TAKE 1 TABLET BY MOUTH 3 TIMES A DAY (MAX 2 TABS PER DOSE) 0 Active glimepiride (AMARYL) 1 mg tablet Take 1 mg by mouth daily. 2 Active cephALEXin (KEFLEX) 500 mg capsule 500 MG ORALLY EVERY 8 HOURS FOR 7 DAYS 3 Active Rybelsus 7 mg Tablet Take 7 mg by mouth daily. 3 Active anastrozole (ARIMIDEX) 1 mg tablet Take 1 Tablet (1 mg) by mouth daily. 90 Tablet 2 4 Active Active Problems Problem Noted Date Diagnosed Date Benign hypertension 06/23/2019 Aromatase inhibitor use 05/10/2019 Lipoma of torso 11/22/2018 Malignant neoplasm of upper- outer quadrant of right breast in female, estrogen receptor positive 10/27/2018 Resolved Problems Problem Noted Date Diagnosed Date Resolved Date History of external beam radiation therapy 05/10/2019 05/10/2019 Postoperative infection 04/06/2019 11/0 03/2019 Abnormal ultrasound of breast 11/15/2018 11/22/2018 Left breast lump 10/27/2018 11/22/2018 Encounters Date Type Department Care Team Description 09/06/2024 External Device Data STL ABSTRACTION Provider, Abstract 09/06/2024 Orders Only [facility] Oncology and Hematology [facility] [address] [place] [id number] Tj Fischer MD 09/05/2024 External Device Data STL ABSTRACTION Provider, Abstract 08/29/2024 External Device Data STL ABSTRACTION Provider, Abstract 07/26/2024 9:45 AM DATABASE ADMINISTRATION ASSOCIATE Office Visit [facility] Oncology and Hematology [facility] [address] [place] [id number] Tj Fischer MD Malignant neoplasm of upper-outer quadrant of right breast in female, estrogen receptor positive (CMS/HCC) (Primary Dx); Visit for screening mammogram 07/21/2024 Orders Only [facility] Oncology and Hematology - [place] [address] [place] [id number] Tj Fischer MD 07/20/2024 Orders Only [facility] Oncology and Hematology - [place] [address] [place] [id number] Tj Fischer MD 07/19/2024 Orders Only [facility] Oncology and Hematology - [place] [address] [place] [id number] Tj Fischer MD Malignant neoplasm of upper-outer quadrant of right breast in female, estrogen receptor positive (CMS/HCC) (Primary Dx) 07/17/2024 Refill [facility] Oncology and Hematology - [place] [address] [place] [address] Lyric Cervantes MD 06/23/2024 Refill [facility] Oncology and Hematology - [place] [address] [place] [address] Lyric Cervantes MD from Last 3 Months Social History Tobacco Use Types Packs/Day Years Used Date Smoking Tobacco: Never Smokeless Tobacco: Never Tobacco Cessation:Counseling Given: Not Answered Alcohol Use Standard Drinks/Week Comments No 0 (1 standard drink = 0.6 oz pur e alcohol) Comments No Sex and Gender Information Value Date Recorded Sex Assigned at Not on file Legal Sex Female 4:05 PM DATABASE ADMINISTRATION ASSOCIATE Gender Identity Not on file Sexual Orientation Not on file Last Filed Vital Signs Vital Sign Reading Time Taken Comments Blood Pressure 139/74 07/26/2024 9:28 AM DATABASE ADMINISTRATION ASSOCIATE Pulse 63 07/26/2024 9:28 AM DATABASE ADMINISTRATION ASSOCIATE Temperature 36.3 ??C (97.3 ??F) 07/26/2024 9:28 AM CS T Respiratory Rate 15 07/26/2024 9:28 AM DATABASE ADMINISTRATION ASSOCIATE Oxygen Saturation 94% 07/26/2024 9:28 AM DATABASE ADMINISTRATION ASSOCIATE Inhaled Oxygen Concentration - - Weight 86.6 kg (191 lb) 07/26/2024 9:28 AM DATABASE ADMINISTRATION ASSOCIATE Height 165.1 cm (5' 5 ) 01/27/2022 9:02 AM CDT Body Mass Index 31.78 01/27/2022 9:02 AM CDT Plan of Treatment Upcoming Encounters Date Type Department Care Team (Late st Contact Info) Description 01/26/2025 8:30 AM CDT Office Visit [facility] Oncology and Hematology - [place] [address] [facility] [address] [place] [phone] Tj Fischer MD [address] [facility] [address] [place] [address] Health Maintenance Due Date Last Done Comments DIABETES ANNUAL FOOT EXAM 1966 DIABETES ANNUAL RETINAL EXAM 1966 DIABETES MICROALBUMIN ANNUAL SCREEN 1966 LDL CHOLESTEROL ANNUAL 1966 DTAP/TDAP/TD VACCINES (1 - Tdap) 1967 PNEUMOCOCCAL VACCINE 65+ YEA RS (1 of 2 - PCV) 1967 FIT-DNA Q 3 years 1993 FIT/FOBT Q 1 year 1993 Flex Sig/CT Colonography Q 5 years 1993 ZOSTER VACCINE (1 of 2) 1998 DIABETES HBA1C Q 6 MONTHS 09/01/2020 03/01/2020 RSV VACCINE (60+ or ) (1 - 1-dose 75+ series) 2023 INFLUENZA VACCINE (#1) 2024 Medicare Advantage ([place]) Prev entative Visit/Annual Wellness Visit 08/16/2024 COLORECTAL SCREENING 11/11/2033 11/12/2023, 11/12/19 Colorectal Cancer Screening 11/11/2033 OSTEOPOROSIS SCREENING Completed 11/28/2012 Procedures Procedure Name Priority Date/Time Associated Diagnosis Comments MAMMO SCREENING BILAT Routine 09/06/2024 10:26 AM DATABASE ADMINISTRATION ASSOCIATE COMPREHENSIVE METABOLIC PANEL Routine 07/19/2024 12:17 PM DATABASE ADMINISTRATION ASSOCIATE CBC WITH DIFFERENTIAL Routine 07/19/2024 8:49 AM DATABASE ADMINISTRATION ASSOCIATE HEMOGLOBIN A1C Routine 03/01/2020 from Last 3 Months or Most Recently Relevant to Health Maintenance Results * MAMMO SCREENING BILAT (09/06/2024 10:26 AM DATABASE ADMINISTRATION ASSOCIATE) Anatomical Region Laterality Modality Breast Bilateral Other Tj Fischer MD MAMMO ORDERABLES Final Result * COMPREHENSIVE METABOLIC PANEL (07/19/2024 12:17 PM DATABASE ADMINISTRATION ASSOCIATE) Blood Tj Fischer MD CHEMISTRY ORDERABLES Final Resu lt * CBC WITH DIFFERENTIAL (07/19/2024 8:49 AM DATABASE ADMINISTRATION ASSOCIATE) Blood Tj Fischer MD HEMATOLOGY ORDERABLES Final Res ult * HEMOGLOBIN A1C (03/01/2020) Blood Abstract Provider CHEMISTRY ORDERABLES Edited Re sult - Final NON [facility] from Last 3 Months or Most Recently Relevant to Health Maintenance Insurance MCR Care Teams Accounts Payable Professional Relationship Specialty Start Date End Date Srikanth Melgar MD [address] [place] [phone] PCP - General Family Practice 10/12/18
--- OUTSIDE RECORDS SUMMARY | 2024-09-07 22:15 | XMS_ITS | Patient Health Summary ---
Author Organization [facility] Address [address] [place] [address] Care Team Providers Care Medical Diagnostic Radiographer Name Role Phone Sirkanth Melgar MD Primary Care Provider + Note from [facility],non-owned Affiliates and Associated Physician Practices is amultiple site organization consisting of ambulatory clinics and hospital sitesin [place], [place], [place] and [place]. This disclosure is being madepursuant to the Care Everywhere program and may not contain all information available regarding this patient. Last updated 18.[facility] Allergies No known active allergies Medications * Be aware that medications may not be up to date on this document. Alwaysverify current medications with the patient. * metFORMIN ER 24hr (GLUCOPHAGE XR) 500 MG tablet(Started 12/24/2015) TAKE 4 TABLETS BY MOUTH EVERY DAY Social History Tobacco Use Types Packs/Day Years Used Date Smoking Tobacco: Never Assessed Sex and Gender Information Value Date Recorded Sex Assigned at Not on file Gender Identity Not on file Sexual Orientation Not on file Procedures * MRI BREAST BILAT [facility] CONTRAST(Performed 11/14/2018) Performed for Malignant neoplasm of upper-outer quadrant of right breast in female, estrogen receptor negative * CREATININE BLOOD - POCT (IP) [facility](Performed 11/14/2018) Performed for Malignant neoplasm of upper-outer quadrant of right breast in female, estrogen receptor negative Results * (ABNORMAL) MRI BREAST BILAT [facility] CONTRAST (11/14/2018 4:37 PM CDT) Anatomical Region Laterality Modality Breast Bilateral Magnetic Resonan ce 11/16/2018 8:44 AM CDT Impressions 11/16/2018 10:41 AM CDT IMPRESSION: Right breast: Irregular enhancing mass with spiculated margins located 2.5 cm posterior and slightly medial to the ribbon-shaped biopsy marker, which is consistent with the known invasive lobular carcinoma. Upon review of the outside mammograms, although 3-D post biopsy mammograms were not obtained, the mass that was considered suspicious is located 2.5 cm posterior to the biopsy marker. Left breast: No MR evidence of malignancy in the left breast. ASSESSMENT: BI-RADS category 6, known malignancy. RECOMMENDATION: Clinical follow up with a breast surgeon for further management of the patient's known right breast invasive lobular carcinoma. Of note, small residual mass is located 2.5 cm posterior to the third biopsy marker that was placed, the ribbon marker. I, Dr. THEO MADISON M.D. have personally reviewed and interpreted this examination/study. This report was electronically signed by THEO MADISON M.D. ??on 11/16/2018 10:41 AM . Narrative 11/16/2018 10:41 AM CDT BILATERAL BREAST MRI HISTORY: ??68-year-old female with right breast mass consistent with invasive lobular carcinoma. Ultrasound biopsy performed of this mass in the 10:00 position of the right breast first revealed benign breast tissue which was thought discordant, therefore second ultrasound biopsy was performed posterior to the first using ultrasound guidance which revealed the carcinoma (ribbon-shaped clip left at this location). Per clinic notes, the patient also has a palpable lump in the upper outer left breast. COMPARISON: Comparison is made with outside hospital right breast ultrasound from 10/04/2018 and multiple prior outside mammograms, most recently 10/04/2018, at [facility]. TECHNIQUE: Multiplanar multisequence MR imaging of both breasts before and following the administration of 10 cc of Gadavist. Dynamic phase imaging was performed in the axial plane. Exam was processed by and interpreted on a [employer] server including 3-D volume rendering, subtraction image processing and contrast kinetic analysis. FINDINGS: Background tissue pattern: Scattered fibroglandular tissue is present. Degree of background parenchymal enhancement: Minimal. RIGHT BREAST: A focus of susceptibility artifact in the right upper outer breast 6 cm deep to the nipple is secondary to the first biopsy performed 07/04/2018 which was benign (series 3, image 93). An additional smaller focus of susceptibility artifact is identified in the right upper outer breast at posterior depth, 9.5 cm deep to the nipple, related to the second biopsy performed 10/04/2018 which revealed malignancy (series 3, image 94). There is a third small focus of susceptibility artifact in the subareolar region of the right breast (series 3, image 94), also secondary to prior remote benign biopsy. No enhancement is identified adjacent to the biopsy clip in the subareolar right breast or in the right upper outer breast at the clip at middle depth. 2.5 cm posterior, and slightly medial to the ribbon-shaped biopsy marker in the right upper outer breast at posterior depth, there is an irregular homogenously enhancing mass with spiculated margins located at 10:00 measuring 8 x 7 mm (series 6 image 95). This likely corresponds to the biopsy-proven invasive lobular carcinoma. There is no abnormality of the right axilla, chest wall, or nipple areolar complex. LEFT BREAST: There is no suspicious mass or area of abnormal enhancement in the left breast. In particular, no suspicious findings identified in the upper outer left breast in the described region of the palpable lump. There is no abnormality of the left axilla, chest wall, or nipple areolar complex. EXTRAMAMMARY FINDINGS: Postoperative changes of median sternotomy are partially imaged. Judi Gonzalez DO MR ORDERABLES * (ABNORMAL) CREATININE BLOOD - POCT (IP) [facility] (11/14/2018 3:50 PM CDT) Creatinine POCT 1.07 0.3 - 1.3 mg/dL [facility] eGFR POCT 54(A) 60 ml/min [facility] Blood BLOOD SPECIMEN / Unknown 11/14/2018 3:50 PM CDT Judi Gonzalez DO LAB - POINT OF CARE ORDERABLES [facility] [address] [phone] Care Teams Medical Diagnostic Radiographer Relationship Specialty Start Date End Date Srikanth Melgar MD [address] [place] [address] [facility] - General 07/12/18
--- OUTSIDE RECORDS SUMMARY | 2024-09-07 22:15 | XMS_ITS | Referral Summary ---
Author Organization [facility] [address] Address [address] [place] [address] Care Team Providers Care Finance Executive Name Role Phone Srikanth Melgar MD Primary Care Prov ider Allergies Active Allergy Reactions Criticality Noted Date Comments Iodine Rash,Hives Medium 10/27/2018 Medications doxycycline (VIBRAMYCIN) 100 mg capsule Take 1 tablet/capsule (100 mg total) by mouth as needed 9 Active irbesartan (AVAPRO) 300 mg tablet Take 1 tablet (300 mg total) by mouth daily 1 9 Active metFORMIN (GLUMETZA) 500 mg 24 hr tablet Take 1 tablet (500 mg total) by mouth daily with breakfast Active meclizine (ANTIVERT) 25 mg tablet Take 1 tablet (25 mg total) by mouth as needed Active isosorbide mononitrate ER (IMDUR) 60 mg 24 hr tablet Take 1 tablet (60 mg total) by mouth daily Active cloNIDine (CATAPRES) 0.1 mg tablet Take 1 tablet (0.1 mg total) by mouth 2 (two) times a day 60 tablet 5 9 Active Additional Information Patient taking differently: 0.2 mgoral 2 times daily, Reported on 04/13/2023 clopidogreL (PLAVIX) 75 mg tablet Take 1 tablet (75 mg total) by mouth daily Active ALPHA LIPOIC ACID ORAL Take by mouth Active anastrozole (ARIMIDEX) 1 mg tablet Take 1 tablet (1 mg total) by mouth daily 0 Active armodafiniL (NUVIGIL) 150 mg tablet Take 1 tablet (150 mg total) by mouth every morning 0 Active pioglitazone (ACTOS) 30 mg tablet Take 1 tablet (30 mg total) by mouth daily 0 Active aspirin (Adult Low Dose Aspirin) 81 mg enteric coated tablet Take 1 tablet (81 mg total) by mouth daily 1 Active diazePAM (VALIUM) 2 mg tablet Take 1 tablet (2 mg total) by mouth every 6 (six) hours as needed for anxiety Active hyoscyamine (LEVSIN) 0.125 mg tablet 2 Active Rybelsus 7 mg tablet Take 1 tablet (7 mg total) by mouth daily 3 Active nitroglycerin (NITROSTAT) 0.[address] 1 tablet (0.4 mg total) under the tongue as needed for chest pain (May repeat up to 3 tabs in 15 minutes.) 90 tablet 3 Active ezetimibe (ZETIA) 10 mg tablet TAKE 1 TABLET BY MOUTH EVERY DAY 90 tablet 3 4 Active atorvastatin (LIPITOR) 80 mg tabletIndication s:Atherosclerosi s of [place] coronary artery of [place] heart without angina pectoris TAKE 1 TABLET BY MOUTH EVERY DAY 90 tablet 3 4 Active spironolactone (ALDACTONE) 25 mg tablet Take 1 tablet (25 mg total) by mouth daily 90 tablet 3 4 Active Active Problems Problem Noted Date Diagnosed Date QT prolongation 04/13/2023 Bradycardia 07/15/2022 Chronic fatigue 07/15/2022 H/O: CVA (cerebrovascular accident) 09/20/2019 Occlusion of left internal carotid artery 2019 Hypertension associated with diabetes 12/21/2018 Abnormal nuclear stress test 12/21/2018 Hx of CABG 12/21/2018 Mixed diabetic hyperlipidemi a associated with type 2 diabetes mellitus ([facility]) 12/21/2018 Preoperative cardiovascular examination 12/22/19 19 SANCHEZ (dyspnea on exertion) 12/21/2018 JANES (obstructive sleep apnea) 12/21/2018 Malignant neoplasm of female breast 12/21/2018 Allergy to iodine 12/21/2018 Resolved Problems Problem Noted Date Diagnosed Date Resolved Date Coronary artery disease of n ative artery of [place] heart with stable angina pectoris ([facility]) 12/21/2018 04/21/2024 Social History Tobacco Use Types Packs/Day Years Used Date Smoking Tobacco: Never Smokeless Tobacco: Never Tobacco Cessation:Counseling Given: Not Answered Alcohol Use Standard Drinks/Week Comments Yes 0 (1 standard drink = 0.6 oz pur e alcohol) rarely AUDIT-C Answer Date Recorded Q1: How often do you have a drink containing alc ohol? Monthly or less 11/12/2023 Q2: How many drinks containi ng alcohol do you have on a typical day when you are drinking? 1 or 2 11/12/2023 Q3: How often do you have si x or more drinks on one occasion? Never 11/12/2023 Personal Safety Answer Date Recorded Have you ever been in or are you currently in a harmful physical or emotional relationship or is someone making you feel afraid or unsafe? Denies 11/12/2023 Comments Unknown Sex and Gender Information Value Date Recorded Sex Assigned at Not on file Legal Sex Female 1:54 AM CAPABILITY LEAD Gender Identity Not on file Sexual Orientation Not on file Last Filed Vital Signs Vital Sign Reading Time Taken Comments Blood Pressure 102/64 04/21/2024 7:57 AM CDT Pulse 58 04/21/2024 7:57 AM CDT Temperature 36.2 ??C (97.2 ??F) 11/12/2023 12:40 PM C DT Respiratory Rate 19 11/12/2023 1:00 PM CDT Oxygen Saturation 99% 04/21/2024 7:57 AM CDT Inhaled Oxygen Concentration - - Weight 86 kg (189 lb 8 oz) 04/21/2024 7:57 AM CD T Height 165.1 cm (5' 5 ) 04/21/2024 7:57 AM CDT Body Mass Index 31.53 04/21/2024 7:57 AM CDT Plan of Treatment Not on file Procedures Procedure Name Priority Date/Time Associated Diagnosis Comments COLONOSCOPY 11/12/2023 12:11 PM CDT POCT LIPID PANEL Routine 09/28/2023 9:18 AM CAPABILITY LEAD Coronary artery disease involving [place] coronary artery of [place] heart without angina pectoris HEMOGLOBIN A1C Routine 06/15/2013 10:13 AM CDT DEXA AXIAL SKELETON BONE DENSITY 1 OR MORE SITES Routine 11/28/2012 1:31 PM CDT from Last 3 Months or Most Recently Relevant to Health Maintenance Results * Colonoscopy (11/12/2023 12:11 PM CDT) Anatomical Region Laterality Modality Other Narrative Procedure Note Trudy Saravia MD - 11/12/2023 12:11 PM CDT [facility] GI ENDOSCOPY Patient Name: Mikki Wood Procedure Date: 11/12/2023 12:11 PM Date of : 1950 Admit Type: Outpatient Age: 73 Gender: Female Attending MD: Trudy Saravia M.D. Room: [facility] ENDOSCOPY ROOM 06 Note Status: Finalized Procedure: Colonoscopy Indications: Screening in patient at increased risk: Familyhistory of 1st-degree relative with colorectal cancer Referring MD: Providers: Trudy Saravia M.D. Medicines: See the Anesthesia note for documentation of the administered medications Complications: No immediate complications. Estimated Blood Loss: Estimated blood loss: none. Procedure: Pre-Anesthesia Assessment: - Prior to the procedure, a History and Physicalwas performed, and patient medications, allergies and sensitivities were reviewed. The patient'stolerance of previous anesthesia was reviewed. - The risks and benefits of the procedure and the sedation options and risks were discussed with the patient. All questions were answered and informed consent was obtained. The benefits, risks and alternatives of theprocedure and sedation were discussed and informed consentwas obtained. All questions were answered. Please referto the signed informed consent document in the medical record. The scope was passed under direct vision.The PCF-H180AL colonoscope was introduced through theanus and advanced to the cecum, identified byappendiceal orifice and ileocecal valve. The colonoscopy was performed without difficulty. The patient tolerated the procedure well. The quality of the bowel preparation was adequate to identify polyps 6 mmand larger in size. The ileocecal valve, appendiceal orifice, and rectum were photographed. Prep was administered in a single dose. Findings: The perianal and digital rectal examinations were normal. Pertinent negatives include normal sphincter tone. Many small-mouthed diverticula were found in the left colon. The retroflexed view of the distal rectum and anal verge was normaland showed no anal or rectal abnormalities. Impression: - Diverticulosis in the left colon. - The distal rectum and anal verge are normal on retroflexion view. - No specimens collected. Recommendation: - Resume previous diet. - Continue present medications. Trudy Saravia M.D. Trudy Saravia M.D. 11/12/2023 12:45:15 PM . Number of Addenda: 0 Note Initiated On: 11/12/2023 12:11 PM Recognized by the [place] [employer] for promoting quality in endoscopy us Trudy Saravia MD ENDOSCOPY PROCEDURES Yamilet jaquez Result * POCT lipid panel (09/28/2023 9:18 AM CAPABILITY LEAD) Cholesterol, POC 100 mg/dL HDL, POC 50 mg/dL Triglycerides, POC 194 mg/dL LDL Cholesterol POC 23 mg/dL Chol/HDL Ratio, POC - Non-HDL Cholesterol, POC - mg/dL Cholesterol Total, POC 100 mg/dL Capillary blood 09/28/2023 9 :18 AM CAPABILITY LEAD us Flor Castillo NP POINT OF CARE TEST ORDERA BLES Final Result * (ABNORMAL) Hemoglobin A1c (06/15/2013 10:13 AM CDT) Hemoglobin A1c % 7.6(H) 4.8 - 5.9 % 06/15/2013 1:16 PM CDT [facility] HISTORICAL RESULTS Comment: As of 2010 Method: ??ADONIS Baron 6000 using turbidometric inhibition immunoassay procedure. Results obtained are comparable to results obtained using previous methodology (HPLC). [place] [employer] recommends that the goal of therapy should be an A1C hemoglobin of <7%. Reevaluate the treatment regimen in patients with an A1C >8%. 06/15/2013 10:1 3 AM CDT 06/15/2013 12:55 PM CDT us Yehuda Ernandez MD LAB BLOOD ORDERABLES Final Resu lt [facility] HISTORICAL RESULTS * Dexa Axial Skeleton Bone Density 1 or 2 Site (11/28/2012 1:31 PM CDT) Anatomical Region Laterality Modality Body N/A Radiographic Nadia ging 11/28/2012 1:31 PM CDT Impressions 11/28/2012 1:49 PM CDT ?? Normal bone density. THIS IS AN ELECTRONICALLY VERIFIED REPORT 11/28/2012 1:45 PM: ??Lyly Cullen M.D. Lyly Cullen M.D. KL:annika 01:45 PM 01:45 PM [EOD] Narrative 11/28/2012 1:49 PM CDT EXAMINATION: Bone Density Study (DEXA) HISTORY: ??Post menopausal woman with clinical concern for low bone mineral density. COMPARISON: ??No prior DEXA. TECHNIQUE: Dual-energy X-ray absorptiometry of the lumbar spine and total left hip were performed. FINDINGS: Lumbar spine (from L1 through L4): The bone mineral density is 1.176 gm / cm sq. ?? The T score is 1.2. The percentage of young normal mean is 112%. Total Left Hip: The bone mineral density is 1.133 gm / cm sq. The T score is 1.6. The percentage of young normal mean is 120%. Procedure Note Provider, MD Jessica - 12/31/2020 EXAMINATION: Bone Density Study (DEXA) HISTORY: Post menopausal woman with clinical concern for low bone mineral density. COMPARISON: No prior DEXA. TECHNIQUE: Dual-energy X-ray absorptiometry of the lumbar spine and totalleft hip were performed. FINDINGS: Lumbar spine (from L1 through L4): The bone mineral density is 1.176 gm / cm sq. The T score is 1.2. The percentage of young normal mean is 112%. Total Left Hip: The bone mineral density is 1.133 gm / cm sq. The T score is 1.6. The percentage of young normal mean is 120%. IMPRESSION: Normal bone density. THIS IS AN ELECTRONICALLY VERIFIED REPORT 11/28/2012 1:45 PM: Lyly Cullen M.D. Lyly Cullen M.D. KL:annika 01:45 PM 01:45 PM [EOD] us Yehuda Ernandez MD IM DXA PROCEDURES Final Result from Last 3 Months or Most Recently Relevant to Health Maintenance Insurance [facility] Member Subscriber Plan / Payer ( fective 2014-Present) Name:Mikki Wood Relation to Subscriber:Self Name:Mikki Wood Payer ID:[id number] (NA) Type:MEDICARE RISK OTHER Address: [address] [id number] [place] Advance Directives For more information, please contact: [phone] Documents on File Type Date Recorded Patient Director Of Primary Expl anation ADVANCE DIRECTIVE 12/06/2012 12:00 AM PATRICIA MCRAE WILL ADVANCE DIRECTIVE 12/06/2012 12:00 AM IMAN R OF ECONOMICS PROFESSOR FINANCIAL/MEDICAL Care Teams Finance Executive Relationship Specialty Start Date End Date Srikanth Melgar MD [address] [place] [address] PCP - General 02/26/16
--- OUTSIDE RECORDS SUMMARY | 2024-09-07 22:15 | XMS_ITS | Clinical Summary ---
Author Organization [facility] [address] Address [address] [place] [address] Care Team Providers Care Contracts Analyst Name Role Phone Srikanth Melgar MD Primary [...] (LIPITOR) 80 mg tabletIndication s:Atherosclerosi s of [place] coronary artery of [place] heart without angina pectoris TAKE 1 TABLET [...] a associated with type 2 diabetes mellitus ([facility]) 12/21/2018 Preoperative cardiovascular examination 12/22/19 19 SANCHEZ (dyspnea on exertion) 12/21/2018 JANES (obstructive sleep apnea) 12/21/2018 Malignant neoplasm of female breast 12/21/2018 Allergy to iodine 12/21/2018 Resolved Problems Problem Noted Date Diagnosed Date Resolved Date Coronary artery disease of n ative artery of [place] heart with stable angina pectoris ([facility]) 12/21/2018 04/21/2024 Surgical History Surgery Date Site/Laterality Comments CORONARY ARTERY BYPASS GRAFT Quad SECTION CHOLECYSTECTOMY HEMORRHOID SURGERY BACK SURGERY ARTERIAL BYPASS SURGERY Medical History Medical History Date Comments Hypertension Hyperlipidemia Diabetes mellitus (HCC) Stroke (HCC) Cancer (CMS/HCC) (HCC) breast H/O TIA (transient ischemic attack) and stroke 0 09/20/2019 Sleep apnea Coronary artery disease Type 2 diabetes mellitus (HCC) Family History Medical History Relation Name Comments Passed in fire Brother sepsis Father Cancer Mother Relation Name Status Comments Brother (Age 40) Father (Age 70) Mother (Age 75) Sister Alive Social History Tobacco Use Types Packs/Day Years [...] on file Legal Sex Female 1:54 AM 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 Gender Identity Not on file Sexual Orientation Not on file Obstetrics History Last Filed Vital Signs Vital Sign Reading [...] 04/21/2024 7:57 AM CDT Plan of Treatment Health Maintenance Due Date Last Done Comments Albumin Creatinine Ratio, Urine 1950 Depression Screening 1950 Hepatitis C Screening 1950 eGFR 1950 Dilated Eye Exam 1950 Foot Exam 1950 DTaP/Tdap/Td Vaccine (1 - Tdap) 1959 Hepatitis B Screening 1966 Zoster Vaccine (1 of 2) 1967 Well Visit 65+ 2013 Hemoglobin A1C 12/13/2013 06/15/2013 Osteoporosis Screening-Bone Density Scan 11/28/2014 11/28/2012, 11/28/2012 Pneumococcal vaccine 65+ (2 of 2 - PPSV23 or PCV20) 07/12/2016 05/17/2016 Influenza Vaccine (#1) 2024 9, 05/17/2016, 08/15/2014, Additional history exists Lipid Panel 09/28/2024 09/28/2023, 05/18, 07/15/2022, Additional history exists Fall Risk Assessment 11/11/2024 11/12/2023 Colon Cancer Screening-Colonoscopy 11/11/2033 11/12/2023 Breast Cancer Screening-Mammogram Discontinued 023 Colon Cancer Screening-CT Colonography Discontinued 11/12/2023 Colon Cancer Screening-DNA Stool Discontinued 11/12/19 Colon Cancer Screening-FIT Discontinued 11/12/2023 Colon Cancer Screening-Sigmoidoscopy Discontinued 11/12/2023 Procedures Procedure Name Priority Date/Time Associated Diagnosis Comments COLONOSCOPY 11/12/2023 12:11 PM CDT POCT LIPID PANEL Routine 09/28/2023 9:18 AM 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 Coronary artery disease involving [place] coronary artery of [place] heart without angina pectoris HEMOGLOBIN A1C Routine 06/15/2013 10:13 AM CDT DEXA AXIAL SKELETON BONE DENSITY 1 OR MORE SITES Routine 11/28/2012 1:31 PM CDT from Last 3 Months or Most Recently Relevant to Health Maintenance Results * Colonoscopy (11/12/2023 12:11 PM CDT) Anatomical Region Laterality Modality Other Narrative Procedure Note Trudy Saravia MD - 11/12/2023 12:11 PM CDT [facility] GI ENDOSCOPY Patient Name: Mikki Wood Procedure Date: 11/12/2023 12:11 PM Date of : 1950 Admit Type: Outpatient Age: 73 Gender: Female Attending MD: Trudy Saravia M.D. Room: [facility] ENDOSCOPY ROOM 06 Note Status: Finalized Procedure: [...] On: 11/12/2023 12:11 PM Recognized by the [place] [employer] for promoting quality in endoscopy Trudy Saravia MD ENDOSCOPY PROCEDURES Yamilet l Result * POCT lipid panel (09/28/2023 9:18 AM 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) Cholesterol, POC 100 mg/dL HDL, POC 50 mg/dL Triglycerides, POC 194 mg/dL LDL Cholesterol POC 23 mg/dL Chol/HDL Ratio, POC - Non-HDL Cholesterol, POC - mg/dL Cholesterol Total, POC 100 mg/dL Capillary blood 09/28/2023 9 :18 AM 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 us Flor Castillo NP POINT OF CARE TEST ORDERA BLES Final Result * (ABNORMAL) Hemoglobin A1c (06/15/2013 10:13 AM CDT) Hemoglobin A1c % 7.6(H) 4.8 - 5.9 % 06/15/2013 1:16 PM CDT [facility] HISTORICAL RESULTS Comment: As of 2010 Method: ??ADONIS Baron 6000 using turbidometric inhibition immunoassay procedure. Results obtained are comparable to results obtained using previous methodology (HPLC). [place] [employer] recommends that the goal of therapy should be an A1C hemoglobin of <7%. Reevaluate the treatment regimen in patients with an A1C >8%. 06/15/2013 10:1 3 AM CDT 06/15/2013 12:55 PM CDT us Yehuda Ernandez MD LAB BLOOD ORDERABLES Final Resu lt [facility] HISTORICAL RESULTS * Dexa Axial Skeleton Bone [...] REPORT 11/28/2012 1:45 PM: Lyly Cullen M.D. Lyyl Cullen M.D. KL:annika 01:45 PM 01:45 PM [EOD] Yehuda Ernandez MD IMG DXA PROCEDURES Final Result from Last 3 Months or Most Recently Relevant to Health Maintenance Insurance [facility]CARE Advance Directives For more information, please contact: [phone] Documents on File Type Date Recorded Patient Compliance Auditor Expl anation ADVANCE DIRECTIVE 12/06/2012 12:00 AM PATRICIA MCRAE WILL ADVANCE DIRECTIVE 12/06/2012 12:00 AM IMAN R OF SENIOR ACCOUNTING CLERK FINANCIAL/MEDICAL Care Teams Contracts Analyst Relationship Specialty Start Date End Date Srikanth Melgar MD [address] [place] [address] PCP - General 02/26/16
--- OUTSIDE RECORDS SUMMARY | 2024-09-07 22:15 | XMS_ITS | Encounter Summary ---
Author Organization [facility] Address [address] [place] [address] Care Team Providers Care Hr Shared Services Consultant Name Role Phone Srikanth Melgar MD Primary Care Provider [phone] Encounter Details Date Type Department Care Team (Late Contact Info) Description 09/05/2024 External Device Data [facility] ABSTRACTION Provider, Abstract NO ADDRESS ON FILE Social History Tobacco Use Types Packs/Day Years Used Date Smoking Tobacco: Never Smokeless Tobacco: Never Alcohol Use Standard Drinks/Week Comments No 0 (1 standard drink = 0.6 oz pur e alcohol) Comments No Sex and Gender Information Value Date Recorded Sex Assigned at Not on file Legal Sex Female 4:05 PM DIRECTOR OF PLACEMENT Gender Identity Not on file Sexual Orientation Not on file documented as of this encounter Plan of Treatment Upcoming Encounters Date Type Department Care Team (Late Contact Info) Description 01/26/2025 8:30 AM CDT Office Visit [facility] Oncology and Hematology - [place] [address] [facility] [address] [address] Tj Fischer MD [address] [address] documented as of this encounter Visit Diagnoses Not on filedocumented in this encounter Care Teams Hr Shared Services Consultant Relationship Specialty Start Date End Date Srikanth Melgar MD [address] [address] PCP - General Family Practice 10/12/18 documented as of this encounter
--- OUTSIDE RECORDS SUMMARY | 2024-09-07 22:15 | XMS_ITS | Referral Summary ---
Author Organization [facility] Address [address] [facility] [place] [address] Care Team Providers Care Environmental Health Officer Name Role Phone Srikanth Melgar MD Primary Care Provider + Source Comments [facility],non-owned Affiliates and Associated Physician Practices is amultiple site organization consisting of ambulatory clinics and hospital sitesin [place], [place], [place] and [place]. This disclosure is being madepursuant to the Care Everywhere program and may not contain all information available regarding this patient. Last updated 18.Unbxd Allergies No known active allergies Medications * Be aware that medications may not be up to date on this document. Alwaysverify current medications with the patient. Medication Sig Dispensed Refills Start Date End Date Status metFORMIN ER 24hr (GLUCOPHAGE XR) 500 MG tablet TAKE 4 TABLETS BY MOUTH EVERY DAY 60 Tab 0 12/24/2015 Active Social History Tobacco Use Types Packs/Day Years Used Date Smoking Tobacco: Never Assessed Sex and Gender Information Value Date Recorded Sex Assigned at Not on file Gender Identity Not on file Sexual Orientation Not on file Plan of Treatment Not on file Care Teams Environmental Health Officer Relationship Specialty Start Date End Date Srikanth Melgar MD [address] [address] PCP - General 07/12/18
--- OUTSIDE RECORDS SUMMARY | 2024-09-07 22:15 | XMS_ITS | Clinical Summary ---
Author Organization [facility] Care Team Providers Care Ski Patrol Director Name Role Phone Unavailable Primary Care Provider Unavailabl e Social History Tobacco Use Types Packs/Day Years Used Date Smoking Tobacco: Never Assessed Comments Unknown Sex and Gender Information Value Date Recorded Sex Assigned at Not on file Legal Sex Female 8:51 AM CLINICAL TRIALS ASSISTANT Gender Identity Not on file Sexual Orientation Not on file Plan of Treatment Health Maintenance Due Date Last Done Comments DEXA Bone Density 1950 Hepatitis C Virus (HCV) Screening 1950 TdaP Immunization 1950 Colonoscopy 1993 Colorectal Cancer Screening 1993 Cologuard 1998 Immunochemical Fecal Occult Blood 1998 Pneumococcal Immunization (50+ years) (2 of 2 - PPSV23) 05/17/2017 05/17/2016 Zoster Immunization (2 of 2) 09/07/2021 07/13/2021 Respiratory Syncytial Virus (RSV) Immunization (Adult) (1 - 1-dose 75+ series) 2023 Influenza Immunization (#1) 04/16/202403/17, 05/17/2016, 08/15/2014, Additional history exists SARS-COV-2 Immunization ( season) 2024 07/13/2021, 07/13/2021, 11/09/2020, Additional history exists Hepatitis B Immunization Aged Out No longer eligible based on patient's age to complete this topic Meningococcal Immunization (ACWY) Aged Out No longer eligible based on patient's age to complete this topic Rotavirus Immunization Aged Out No lo nger eligible based on patient's age to complete this topic
--- OUTSIDE RECORDS SUMMARY | 2024-09-07 22:15 | XMS_ITS | Clinical Summary ---
Author Organization [facility] Address [address] [place] [address]. [place], [place] [address] [place] [address] Care Team Providers Care Publishing Editor Name Role Phone Unavailable Primary Care Provider Unavailabl e Social History Tobacco Use Types Packs/Day Years Used Date Smoking Tobacco: Never Assessed Comments Unknown Sex and Gender Information Value Date Recorded Sex Assigned at Not on file Legal Sex Female 7:21 PM CDT Gender Identity Not on file Sexual Orientation Not on file Plan of Treatment Health Maintenance Due Date Last Done Comments Colorectal Cancer Screening Colonoscopy (10 Years) 1948 Hepatitis C 1966 DTaP, Tdap and Td Vaccines ( 1 - Tdap) 1967 Zoster Vaccines (1 of 2) 1998 Dexa Scan (General) 2013 Pneumococcal Vaccine: 65+ Ye ars (1 of 1 - PCV) 2013 RSV Immunization or 60+ Years (1 - 1-dose 75+ series) 2023 COVID-19 Vaccine ( - 2023-2 5 season) 2024 Influenza Adult (#1) 2024 Meningococcal Vaccine Aged Out No charlie anayeli eligible based on patient's age to complete this topic RSV Immunizations Under 20 Months Aged Out No longer eligible based on patient's age to complete this topic
--- OUTSIDE RECORDS SUMMARY | 2024-09-07 22:15 | XMS_ITS | Clinical Summary ---
Author Organization [employer] Address [address] [place] [address] Care Team Providers Care Senior Nurse Manager Name Role Phone Srikanth Melgar MD Primary Care Provider + Source Comments [facility],non-owned Affiliates and Associated Physician Practices is amultiple site organization consisting of ambulatory clinics and hospital sitesin [place], [place], [place] and [place]. This disclosure is being madepursuant to the Care Everywhere program and may not contain all information available regarding this patient. Last updated 18.[facility] Allergies No known active allergies Medications * [...] Health Maintenance Due Date Last Done Comments BONE DENSITY TESTING 1950 COLOGUARD (AGES 45-75) - COL ON CA SCREENING 1950 COLON MONITORING 1950 COLONOSCOPY - COLON CA SCREENING 1948 CT COLONOGRAPHY - COLON CA SCREENING 1950 Colorectal Cancer Screening 1950 FIT - COLON CA SCREENING 1950 FLEX SIG - COLON CA SCREENING 1950 LIPID TESTING 1950 MAMMOGRAM 1950 HEPATITIS C SCREENING 09/12/1966 DTAP/TDAP/TD VACCINES (1 - Tdap) 1967 PNEUMOCOCCAL VACCINE 50+ (1 of 1 - PCV) 1998 ZOSTER VACCINE (1 of 2) 1998 Respiratory Syncytial Virus (RSV) Vaccine Pt: or over 60 yrs (1 - 1-dose 75+ series) 2023 COVID-19 VACCINE (1 - 2023-2 5 season) 2024 INFLUENZA VACCINE (#1) 2024 DEPRESSION SCREENING 08/16/2024 MEDICARE AWV ? CALENDAR YEAR 2024 HEPATITIS B VACCINE Aged Out No longe r eligible based on patient's age to complete this topic HIB VACCINE Aged Out No longer eligi ble based on patient's age to complete this topic HPV VACCINE Aged Out No longer eligi ble based on patient's age to complete this topic MENINGOCOCCAL (Group B) VACCINE Aged Out No longer eligible based on patient's age to complete this topic MENINGOCOCCAL VACCINE Aged Out No charlie anayeli eligible based on patient's age to complete this topic Care Teams Senior Nurse Manager Relationship Specialty Start Date End Date Srikanth Melgar MD [address] [place] [id number] PCP - General 07/12/18
== END 2024-09-06 09:05 | disposition home or self-care (01) ==
LOC: ANHIMG 09:07
PROVIDERS: PCP Family Medicine Adolescent Medicine; Visit Provider Internal Medicine Hematology & Oncology
DX: Z12.31 Encounter for screening mammogram for malignant neoplasm of breast (principal)
CPT/HCPCS: 77063; 77067

== ENCOUNTER 2025-01-11 12:05 | Outpatient (CLI) | payer OTHER, SELFPAY ==
--- OUTSIDE RECORDS SUMMARY | 2025-01-11 12:09 | XMS_ITS | Clinical Summary ---
Author Organization [facility] Address [address] [place] [address] Care Team Providers Care An/Sqq 89(V)15 Sonar System Journeyman Name Role Phone Srikanth Melgar MD Primary Care Provider +1- [phone] Allergies Active Allergy Reactions Criticality Noted Date [...] tablet Active fluticasone propionate (FLONASE) 50 mcg/spray [place], Suspension nasal inhaler fluticasone propionate 50 mcg/actuation [...] (PLAVIX) 75 mg Tablet 9 Active cloNIDine (EUJIDYCK-EGH-4 ) 0.1 mg/24 hr patch 9 Active [...] Encounters Date Type Department Care Team Description 01/02/2025 External Device Data STL ABSTRACTION Provider, Abstract from Last 3 Months Social History Tobacco Use Types Packs/Day Years Used Date Smoking Tobacco: Never Smokeless Tobacco: Never Tobacco Cessation:Counseling Given: Not Answered Alcohol Use Standard Drinks/Week Comments No 0 (1 standard drink = 0.6 oz pur e alcohol) Comments No Sex and Gender Information Value Date Recorded Sex Assigned at Not on file Legal Sex Female 4:05 PM REVENUE ENFORCEMENT AGENT Gender Identity Not on file Sexual Orientation Not on file Last Filed Vital Signs Vital Sign Reading Time Taken Comments Blood Pressure 139/74 07/26/2024 9:28 AM REVENUE ENFORCEMENT AGENT Pulse 63 07/26/2024 9:28 AM REVENUE ENFORCEMENT AGENT Temperature 36.3 C (97.3 F) 07/26/2024 9:28 AM REVENUE ENFORCEMENT AGENT Respiratory Rate 15 07/26/2024 9:28 AM REVENUE ENFORCEMENT AGENT Oxygen Saturation 94% 07/26/2024 9:28 AM REVENUE ENFORCEMENT AGENT Inhaled Oxygen Concentration - - Weight 86.6 kg (191 lb) 07/26/2024 9:28 AM REVENUE ENFORCEMENT AGENT Height 165.1 cm (5' 5) 01/27/2022 9:02 AM CDT Body Mass Index 31.78 01/27/2022 9:02 AM CDT Plan of Treatment Upcoming Encounters Date Type Department Care Team (Late st Contact Info) Description 01/26/2025 8:30 AM CDT Office Visit [facility] Oncology and Hematology - Harjeet [address] [facility] [address] [place] [address] Tj Fischer MD [address] [place] [address] Health Maintenance Due Date Last Done Comments DIABETES ANNUAL FOOT EXAM 1966 DIABETES ANNUAL RETINAL EXAM 1966 DIABETES MICROALBUMIN ANNUAL SCREEN 1966 LDL CHOLESTEROL ANNUAL 1966 DTAP/TDAP/TD VACCINES (1 - Tdap) 1967 PNEUMOCOCCAL VACCINE 50+ YEA RS (1 of 2 - PCV) 1967 ZOSTER VACCINE (1 of 2) 1998 OSTEOPOROSIS SCREENING 11/28/2017 11/28/2012 DIABETES HBA1C Q 6 MONTHS 09/01/2020 03/01/2020 RSV VACCINE (60+ or ) (1 - 1-dose 75+ series) 2023 INFLUENZA VACCINE (#1) 2024 Medicare Advantage ([place]) Prev entative Visit/Annual Wellness Visit 08/16/2024 COLORECTAL SCREENING Discontinued 11/12/2023, 11/12/19 24 Colorectal Cancer Screening Discontinued FIT-DNA Q 3 years Discontinued FIT/FOBT Q 1 year Discontinued Flex Sig/CT Colonography Q 5 years Discontinued Procedures Procedure Name Priority Date/Time Associated Diagnosis Comments HEMOGLOBIN A1C Routine 03/01/2020 from Last 3 Months or Most Recently Relevant to Health Maintenance Results * HEMOGLOBIN A1C (03/01/2020) Blood us Abstract Provider CHEMISTRY ORDERABLES Edited Re sult - Final NON [facility] from Last 3 Months or Most Recently Relevant to Health Maintenance Insurance Care Teams An/Sqq 89(V)15 Sonar System Journeyman Relationship Specialty Start Date End Date Srikanth Melgar MD PCP - General Family Practice 10/12/18
--- OUTSIDE RECORDS SUMMARY | 2025-01-11 12:09 | XMS_ITS | Clinical Summary ---
Author Organization [facility] [place] [address] Address [address] [place] [address] Care Team Providers Care Patient Portal Concierge Name Role Phone Srikanth Melgar MD Primary Care Prov ider Allergies Active Allergy Reactions Criticality Noted Date Comments Iodine Rash,Hives Medium 10/27/2018 Medications irbesartan (AVAPRO) 300 mg tablet Take 1 tablet (300 mg total) by mouth daily 9 Active metFORMIN (GLUMETZA) 500 mg 24 [...] 2 (two) times a day 60 tablet 9 Active Additional Information Patient taking differently: 0.2 mgoral 2 times daily, Reported on 12/14/2024 clopidogreL (PLAVIX) 75 mg tablet Take 1 [...] mg total) by mouth daily 1 Active Rybelsus 7 mg tablet Take 1 tablet (7 mg total) by mouth daily 3 Active nitroglycerin (NITROSTAT) 0.[address] 1 tablet (0.4 mg total) under the tongue as needed for chest pain (May repeat up to 3 tabs in 15 minutes.) 90 tablet 3 Active atorvastatin (LIPITOR) 80 mg tabletIndicatio ns:Atherosclero sis of [place] coronary artery of [place] heart without angina pectoris TAKE 1 TABLET BY MOUTH EVERY DAY 90 tablet 3 4 Active spironolactone (ALDACTONE) 25 mg tablet Take 1 tablet (25 mg total) by mouth daily 90 tablet 3 4 Active ezetimibe (ZETIA) 10 mg tablet Take 1 tablet (10 mg total) by mouth daily 90 tablet 3 5 Active doxycycline (VIBRAMYCIN) 100 mg capsule Take 1 tablet/capsule (100 mg total) by mouth as needed 9 025 Discontin ued(Patie nt Reported) diazePAM (VALIUM) 2 mg tablet Take 1 tablet (2 mg total) by mouth every 6 (six) hours as needed for anxiety 025 Discontin ued(Patie nt Reported) hyoscyamine (LEVSIN) 0.125 mg tablet 2 025 Discontin ued(Patie nt Reported) ezetimibe (ZETIA) 10 mg tablet TAKE 1 TABLET BY MOUTH EVERY DAY 90 tablet 3 4 025 Discontin ued(Reord er) Active Problems Problem Noted Date Diagnosed Date QT prolongation 04/13/2023 Bradycardia 07/15/2022 Chronic fatigue 07/15/2022 H/O: CVA (cerebrovascular accident) 09/20/2019 Occlusion of left internal carotid artery 2019 Hypertension associated with diabetes 12/21/2018 Coronary artery disease invo lving [place] coronary artery of [place] heart without angina pectoris 12/21/2018 Abnormal nuclear stress test 12/21/2018 Hx of CABG 12/21/2018 Mixed diabetic hyperlipidemi a associated with type 2 diabetes mellitus ([facility]) 12/21/2018 Preoperative cardiovascular examination 12/22/19 19 JANES (obstructive sleep apnea) 12/21/2018 Malignant neoplasm of female breast 12/21/2018 Allergy to iodine 12/21/2018 Resolved Problems Problem Noted Date Diagnosed Date Resolved Date SANCHEZ (dyspnea on exertion) 12/21/2018 Encounters Date Type Department Care Team Description 12/14/2024 9:00 AM CDT Office Visit [facility] Cardiology [address] [place] [address] Terri Hawk MD Coronary artery disease involving [place] coronary artery of [place] heart without angina pectoris (Primary Dx); Mixed diabetic hyperlipidemia associated with type 2 diabetes mellitus (CMS/HCC) (HCC); Hypertension associated with diabetes (HCC); Hx of CABG; H/O: CVA (cerebrovascular accident); Occlusion of left internal carotid artery from Last 3 Months Surgical History Surgery Date Site/Laterality Comments CORONARY ARTERY BYPASS GRAFT Quad SECTION CHOLECYSTECTOMY HEMORRHOID SURGERY BACK SURGERY ARTERIAL BYPASS SURGERY Medical History Medical History Date Comments Hypertension Hyperlipidemia Diabetes mellitus (HCC) Stroke (HCC) Cancer (HCC) breast H/O TIA (transient ischemic attack) [...] on file Legal Sex Female 1:54 AM CONSTRUCTION CODE ADMINISTRATOR Gender Identity Not on file Sexual Orientation Not on file Obstetrics History Last Filed Vital Signs Vital Sign Reading Time Taken Comments Blood Pressure 144/76 12/14/2024 8:53 AM CDT Pulse 54 12/14/2024 8:53 AM CDT Temperature 36.2 C (97.2 F) 11/12/2023 12:40 PM CDT Respiratory Rate 19 11/12/2023 1:00 PM CDT Oxygen Saturation 98% 12/14/2024 8:53 AM CDT Inhaled Oxygen Concentration - - Weight 90.3 kg (199 lb) 12/14/2024 8:53 AM CDT Height 165.1 cm (5' 5) 12/14/2024 8:53 AM CDT Body Mass Index 33.12 12/14/2024 8:53 AM CDT Plan of Treatment Health Maintenance [...] Pneumococcal vaccine 65+ (2 of 2 - PPSV23) 07/12/2016 05/17/2016 Lipid Panel 09/28/2024 09/28/2023, 05/18, 07/15/2022, Additional history exists Fall Risk Assessment 11/11/2024 11/12/2023 Influenza Vaccine (Season Ended) 2025 04/11/2019, 05/17/2016, 08/15/2014, Additional history exists Breast Cancer Screening-Mammogram Discontinued 023 Colon Cancer Screening-CT Colonography Discontinued 11/12/2023 Colon Cancer Screening-Colonoscopy Discontinued 11/12/2023 Colon Cancer Screening-DNA Stool Discontinued 11/12/19 24 Colon Cancer Screening-FIT Discontinued 11/12/2023 Colon Cancer Screening-FOBT Discontinued 11/12/2023 Colon Cancer Screening-Sigmoidoscopy Discontinued 11/12/2023 Colorectal Cancer Screening Discontinued Procedures Procedure Name Priority Date/Time Associated Diagnosis Comments COLONOSCOPY 11/12/2023 12:11 PM CDT POCT LIPID PANEL Routine 09/28/2023 9:18 AM CONSTRUCTION CODE ADMINISTRATOR Coronary artery disease involving [place] coronary artery of [place] heart without angina pectoris HEMOGLOBIN A1C Routine 06/15/2013 10:13 AM CDT DEXA AXIAL SKELETON BONE DENSITY 1 OR MORE SITES Routine 11/28/2012 1:31 PM CDT from Last 3 Months or Most Recently Relevant to Health Maintenance Results * Colonoscopy (11/12/2023 12:11 PM CDT) Anatomical Region Laterality Modality Other Narrative Procedure Note Trudy Saravia MD - 11/12/2023 12:11 PM CDT [facility] GI ENDOSCOPY Patient Name: Mikki Wood Procedure Date: 11/12/2023 12:11 PM Date of : 1950 Admit Type: Outpatient Age: 73 Gender: Female Attending MD: Trudy Saravia M.D. Room: [facility] END[facility] 06 Note Status: Finalized [...] On: 11/12/2023 12:11 PM Recognized by the [place] [employer] for promoting quality in endoscopy Trudy Saravia MD ENDOSCOPY PROCEDURES Yamilet l Result * POCT lipid panel (09/28/2023 9:18 AM CONSTRUCTION CODE ADMINISTRATOR) Cholesterol, POC 100 mg/dL HDL, POC 50 mg/dL Triglycerides, POC 194 mg/dL LDL Cholesterol POC 23 mg/dL Chol/HDL Ratio, POC - Non-HDL Cholesterol, POC - mg/dL Cholesterol Total, POC 100 mg/dL Capillary blood 09/28/2023 9 :18 AM CONSTRUCTION CODE ADMINISTRATOR Flor Castillo NP POINT OF CARE TEST ORDERA BLES Final Result * (ABNORMAL) Hemoglobin A1c (06/15/2013 10:13 AM CDT) Hemoglobin A1c % 7.6(H) 4.8 - 5.9 % Comment: As of 2010 Method: ADONIS Baron 6000 using turbidometric inhibition immunoassay procedure. Results obtained are comparable to results obtained using previous methodology (HPLC). [place] [employer] recommends that the goal of therapy should be an A1C hemoglobin of <7%. Reevaluate the treatment regimen in patients with an A1C >8%. 06/15/2013 10:1 3 AM CDT 06/15/2013 12:55 PM CDT Yehuda Ernandez MD LAB BLOOD ORDERABLES Final Resu lt [facility] HISTORICAL RESULTS * Dexa Axial Skeleton Bone Density 1 or 2 Site (11/28/2012 1:31 PM CDT) Anatomical Region Laterality Modality Body N/A Radiographic Nadia ging 11/28/2012 1:31 PM CDT Impressions 11/28/2012 1:49 PM CDT Normal bone density. THIS IS AN ELECTRONICALLY VERIFIED REPORT 11/28/2012 1:45 PM: Lyly Cullen M.D. Lyly Cullen M.D. KL:annika 01:45 PM 01:45 PM [EOD] Narrative 11/28/2012 1:49 PM CDT EXAMINATION: Bone Density Study (DEXA) HISTORY: Post [...] Most Recently Relevant to Health Maintenance Insurance HEALTHCARE HEALTHCARE HEALTHCARE Advance Directives For more information, please contact: [phone] Documents on File Type Date Recorded Patient Production Honing Machine Operator Expl anation ADVANCE DIRECTIVE 12/06/2012 12:00 AM PATRICIA MCRAE WILL ADVANCE DIRECTIVE 12/06/2012 12:00 AM IMAN R OF [employer] FINANCIAL/MEDICAL Care Teams Patient Portal Concierge Relationship Specialty Start Date End Date Srikanth Melgar MD [address] [place] [address] PCP - General 02/26/16
--- OUTSIDE RECORDS SUMMARY | 2025-01-11 12:09 | XMS_ITS | Encounter Summary ---
Author Organization [facility] Address [address] [place] [address] Care Team Providers Care Applique Sewer Name Role Phone Srikanth Melgar MD Primary Care Provider +1- [phone] Encounter Details Date Type Department Care Team (Late st Contact Info) Description 04/06/2019 Chart Note [facility] Radiation Therapy [address] [place] [address] [place] [address] [place] [address] Social History Tobacco Use Types Packs/Day Years Used Date Smoking Tobacco: Never Smokeless Tobacco: Never Alcohol Use Standard Drinks/Week Comments No 0 (1 standard drink = 0.6 oz pur e alcohol) Comments No Sex and Gender Information Value Date Recorded Sex Assigned at Not on file Legal Sex Female 4:05 PM MINING MACHINERY ASSEMBLER Gender Identity Not on file Sexual Orientation Not on file documented as of this encounter Plan of Treatment Upcoming Encounters Date Type Department Care Team (Late st Contact Info) Description 01/26/2025 8:30 AM CDT Office Visit [facility] Oncology and Hematology - [place]jeet [address] [facility] [address] [place] [address] Tj Fischer MD [address] [facility] [address] [place] [address] documented as of this encounter Visit Diagnoses Not on filedocumented in this encounter Care Teams Applique Sewer Relationship Specialty Start Date End Date Srikanth Melgar MD PCP - General Family Practice 10/12/18 documented as of this encounter
--- OUTSIDE RECORDS SUMMARY | 2025-01-11 12:09 | XMS_ITS | Clinical Summary ---
Author Organization [facility] Care Team Providers Care Bait Maker Name Role Phone Unavailable Primary Care Provider Unavailabl e Social History Tobacco Use Types Packs/Day Years Used Date Smoking Tobacco: Never Assessed Comments Unknown Sex and Gender Information Value Date Recorded Sex Assigned at Not on file Legal Sex Female 8:51 AM MARKETING ENGINEER Gender Identity Not on file Sexual Orientation [...]
--- OUTSIDE RECORDS SUMMARY | 2025-01-11 12:09 | XMS_ITS | Referral Summary ---
Author Organization [facility] [place] [address] [facility] [address] Address [address] [place] [address] Care Team Providers Care Dynamite Shooter Name Role Phone Srikanth Melgar MD Primary Care Prov ider Encounters Date Type Department Care Team Description 12/14/2024 9:00 AM CDT Office Visit [facility] Cardiology [address] [place] [address] Terri Hawk MD Coronary artery disease involving [place] coronary artery of [place] heart without angina pectoris (Primary Dx); Mixed diabetic hyperlipidemia associated with type 2 diabetes mellitus (CMS/HCC) (HCC); Hypertension associated with diabetes (HCC); Hx of CABG; H/O: CVA (cerebrovascular accident); Occlusion of left internal carotid artery from Last 3 Months Allergies Active Allergy Reactions Criticality Noted Date [...] (LIPITOR) 80 mg tabletIndicatio ns:Atherosclero sis of [place] coronary artery of [place] heart without angina pectoris TAKE 1 TABLET [...] diabetes 12/21/2018 Coronary artery disease invo lving [place] coronary artery of [place] heart without angina pectoris 12/21/2018 Abnormal nuclear stress test 12/21/2018 Hx of CABG 12/21/2018 Mixed diabetic hyperlipidemi a associated with type 2 diabetes mellitus (CMS/HCC) 12/21/2018 Preoperative cardiovascular examination 12/22/19 19 JANES (obstructive sleep apnea) 12/21/2018 Malignant neoplasm of female breast 12/21/2018 Allergy to iodine 12/21/2018 Resolved Problems Problem Noted Date Diagnosed Date Resolved Date SANCHEZ (dyspnea on exertion) 12/21/2018 Social History Tobacco Use Types Packs/Day Years [...] on file Legal Sex Female 1:54 AM SALES FLOOR TEAM MEMBER Gender Identity Not on file Sexual Orientation [...] 12/14/2024 8:53 AM CDT Plan of Treatment Not on file Procedures Procedure Name Priority Date/Time Associated Diagnosis Comments COLONOSCOPY 11/12/2023 12:11 PM CDT POCT LIPID PANEL Routine 09/28/2023 9:18 AM SALES FLOOR TEAM MEMBER Coronary artery disease involving [place] coronary artery of [place] heart without angina pectoris HEMOGLOBIN A1C Routine 06/15/2013 10:13 AM CDT DEXA AXIAL SKELETON BONE DENSITY 1 OR MORE SITES Routine 11/28/2012 1:31 PM CDT from Last 3 Months or Most Recently Relevant to Health Maintenance Results * Colonoscopy (11/12/2023 12:11 PM CDT) Anatomical Region Laterality Modality Other Narrative Procedure Note Trudy Saravia MD - 11/12/2023 12:11 PM CDT [facility] GI ENDOSCOPY Patient Name: Mikki Wood Procedure Date: 11/12/2023 12:11 PM Date of : 1950 Admit Type: Outpatient Age: 73 Gender: Female Attending MD: Trudy Saravia M.D. Room: [facility] ENDOSCOPY ROOM 06 Note Status: Finalized Procedure: [...] * POCT lipid panel (09/28/2023 9:18 AM SALES FLOOR TEAM MEMBER) Cholesterol, POC 100 mg/dL HDL, POC 50 mg/dL Triglycerides, POC 194 mg/dL LDL Cholesterol POC 23 mg/dL Chol/HDL Ratio, POC - Non-HDL Cholesterol, POC - mg/dL Cholesterol Total, POC 100 mg/dL Capillary blood 09/28/2023 9 :18 AM SALES FLOOR TEAM MEMBER Flor Castillo NP POINT OF CARE TEST ORDERA BLES Final Result * (ABNORMAL) Hemoglobin A1c (06/15/2013 10:13 AM CDT) Hemoglobin A1c % 7.6(H) 4.8 - 5.9 % 06/15/2013 1:16 PM CDT [facility] HISTORICAL RESULTS Comment: As of 2010 Method: ADONIS Baron [...] MD LAB BLOOD ORDERABLES Final Resu lt [facility] HISTORICAL RESULTS * Dexa Axial Skeleton Bone [...] Advance Directives For more information, please contact: [phone] Documents on File Type Date Recorded Patient Cbx Operator Expl anation ADVANCE DIRECTIVE 12/06/2012 12:00 AM PATRICIA NG WILL ADVANCE DIRECTIVE 12/06/2012 12:00 AM IMAN R OF COAL DIGGER FINANCIAL/MEDICAL Care Teams Dynamite Shooter Relationship Specialty Start Date End Date Srikanth Melgar MD [address] [place], [place] [id number] PCP - General 02/26/16
--- OUTSIDE RECORDS SUMMARY | 2025-01-11 12:09 | XMS_ITS | Clinical Summary ---
Author Organization [facility] Address [address] [place] [address] Care Team Providers Care Per Diem Interpreter Name Role Phone Srikanth Melgar MD Primary Care Provider + Source Comments [employer] [facility],non-owned Affiliates and Associated Physician Practices is amultiple site organization consisting of ambulatory clinics and hospital sitesin [place], [place], [place] and [place]. This disclosure is being madepursuant to the Care Everywhere program and may not contain all information available regarding this patient. Last updated 18.[employer] [facility] Allergies No known active allergies Medications * Be aware that medications may not be up to date on this document. Alwaysverify current medications with the patient. 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 Gender Identity Not on file Sexual Orientation Not on file Plan of Treatment Health Maintenance Due Date Last Done Comments BONE DENSITY TESTING 1950 HEPATITIS C SCREENING 09/12/1966 DTAP/TDAP/TD VACCINES (1 - Tdap) 1967 PNEUMOCOCCAL VACCINE 50+ (1 of 1 - PCV) 1998 ZOSTER VACCINE (1 of 2) 1998 Respiratory Syncytial Virus (RSV) Vaccine Pt: or over 60 yrs (1 - 1-dose 75+ series) 2023 COVID-19 VACCINE (2023-2 5 season) 2024 DEPRESSION SCREENING 08/16/2024 INFLUENZA VACCINE (Season Ended) 2025 HEPATITIS B VACCINE Aged Out No longe r eligible based on patient's age to complete this topic HIB VACCINE Aged Out No longer eligi ble based on patient's age to complete this topic HPV VACCINE Aged Out No longer eligi ble based on patient's age to complete this topic MENINGOCOCCAL (Group B) VACC INE SHARED DECISION-MAKING Aged Out No longer eligibl e based on patient's age to complete this topic MENINGOCOCCAL GROUPS A/C/Y/W VACCINE Aged Out No longer eligible b ased on patient's age to complete this topic Insurance [employer] Care Teams Per Diem Interpreter Relationship Specialty Start Date End Date Srikanth Melgar MD [address] [place] [address] PCP - General 07/12/18
[2025-01-11 12:17] LABS: Basophils Absolute Auto 0.1 K/mm3 (0.0-0.1); Basophils Percent Auto 0.6 % (0.2-1.2); Eosinophils Absolute Auto 0.2 K/mm3 (0-0.3); Eosinophils Percent Auto 2.3 % (0-4.4); Hematocrit 39.5 % (37.0-47.0); Hemoglobin 13.1 g/dL (12.0-15.0); Immature Granulocyte Absolute 0.03 K/mm3 (0.00-0.031); Immature Granulocyte Percent A 0.4 % (0-0.5); Lymphocytes Absolute Auto 1.48 K/mm3 (0.9-3.2); Lymphocytes Percent Auto 18.7 % (18.3-44.2); Mean Corpuscular HGB Conc 33.2 g/dl (32-36); Mean Corpuscular Hemoglobin 26.7 pg (26-34); Mean Corpuscular Volume 80.6 fl (80-100); Mean Platelet Volume 9.7 fl (7.4-10.4); Monocytes Absolute Auto 0.8 K/mm3 (0.1-0.6); Neutrophils Absolute Auto 5.4 K/mm3 (1.3-6.7); Platelet Count Result 271 k/mm3 (150-375); Red Cell Distribution Width 13.8 % (11.5-14.5); White Blood Count 7.9 K/mm3 (4.5-10.0)
[2025-01-11 13:49] LABS: Alanine Aminotransferase 24 U/L (6-35); Albumin Level 3.9 g/dL (3.5-5.1); Alkaline Phosphatase 116 U/L (38-126); Anion Gap 9 mmol/L (4-12); Aspartate Amino Transferase 36 U/L (14-36); Bilirubin,Total 1.1 mg/dL (0.2-1.3); Blood Urea Nitrogen 14 mg/dL (7-17); Calcium 9.2 mg/dL (8.4-10.2); Carbon Dioxide 30 mmol/L (22-30); Chloride 99 mmol/L (98-107); Estimated Glomerular Filt Rate 59; Glucose 306 mg/dL (65-110); Potassium 4.2 mmol/L (3.4-5.0); Sodium 138 mmol/L (137-145)
[2025-01-13 02:13] LABS: CA 15-3. 18 U/mL (<32)
== END 2025-01-11 12:06 | disposition home or self-care (01) ==
PROVIDERS: PCP Family Medicine Adolescent Medicine; Visit Provider Internal Medicine Hematology & Oncology
DX: C50.411 Malignant neoplasm of upper-outer quadrant of right female breast (principal); Z17.0 Estrogen receptor positive status [ER+]
CPT/HCPCS: 36415; 80053; 85025; 86300